=== PATIENT | female | born 1940 | race Caucasian/White ===

== ENCOUNTER → 2017-10-10 15:35 | Outpatient (CLI) | payer MEDICARE, SELFPAY ==
[2017-10-10 16:08] LABS: Hematocrit 26.7 % (36-46); Hemoglobin 8.4 g/dL (12.0-16.0)
== END ==
PROVIDERS: PCP Nurse Practitioner Family; Visit Provider Nurse Practitioner Family
DX: D64.9 Anemia, unspecified (principal); R53.83 Other fatigue
CPT/HCPCS: 36415; 85014; 85018

== ENCOUNTER → 2017-10-16 10:27 | Outpatient (CLI) | payer MEDICARE, SELFPAY ==
[2017-10-16 11:20] LABS: Hematocrit 34.1 % (36-46); Hemoglobin 11.2 g/dL (12.0-16.0)
== END ==
PROVIDERS: PCP Nurse Practitioner Family; Visit Provider Internal Medicine
DX: D64.9 Anemia, unspecified (principal); R53.83 Other fatigue
CPT/HCPCS: 36415; 85014; 85018

== ENCOUNTER → 2018-05-25 11:29 | Outpatient (CLI) | payer MEDICARE, SELFPAY ==
[2018-05-25 12:05] LABS: Add Manual Diff / Slide Review NO; Basophils Absolute Auto 100 /uL (0-100); Basophils Percent Auto 1.4 % (0-2); Eosinophils Absolute Auto 100 /uL (0-450); Eosinophils Percent Auto 2.2 % (2-4); Hematocrit 28.7 % (36-46); Hemoglobin 9.1 g/dL (12.0-16.0); Lymphocytes Absolute Auto 600 /uL (1100-4500); Lymphocytes Percent Auto 11.5 % (25-40); Mean Corpuscular HGB Conc 31.7 % (30-36); Mean Corpuscular Hemoglobin 25.6 PG (26-34); Mean Corpuscular Volume 80.7 fL (80-100); Monocytes Absolute Auto 400 /uL (0-900); Neutrophils Absolute Auto 4300 /uL (1500-7000); Neutrophils Percent Auto 76.9 % (50-75); Platelet Count 253 X10^3/uL (150-400); Red Blood Cell Count 3.56 X10^6/uL (4.0-5.2); Red Cell Distribution Width 15.6 % (11.6-14.8); White Blood Cell Count 5.6 X10^3/uL (4.5-11.0)
[2018-05-25 12:13] LABS: HEMOLYSIS < 15 (0-50); Iron 335 ug/dL (37-170)
[2018-05-25 12:23] LABS: Percent Iron Saturation 68 % (15-50); Total Iron Binding Capacity 494 ug/dL (265-497); Transferrin 432 mg/dL (206-381)
[2018-05-25 12:51] LABS: Ferritin 7.1 ng/mL (11.1-264)
== END ==
PROVIDERS: PCP Internal Medicine; Visit Provider Internal Medicine
DX: D64.9 Anemia, unspecified (principal)
CPT/HCPCS: 36415; 82728; 83540; 83550; 85025; 86850; 86900; 86901

== ENCOUNTER → 2018-06-08 09:36 | Outpatient (CLI) | payer MEDICARE, SELFPAY ==
[2018-06-08 11:05] LABS: Add Manual Diff / Slide Review NO; Basophils Absolute Auto 100 /uL (0-100); Basophils Percent Auto 1.5 % (0-2); Eosinophils Absolute Auto 200 /uL (0-450); Eosinophils Percent Auto 4.3 % (2-4); Hematocrit 32.6 % (36-46); Hemoglobin 10.2 g/dL (12.0-16.0); Lymphocytes Absolute Auto 800 /uL (1100-4500); Lymphocytes Percent Auto 19.2 % (25-40); Mean Corpuscular HGB Conc 31.4 % (30-36); Mean Corpuscular Hemoglobin 26.3 PG (26-34); Mean Corpuscular Volume 83.9 fL (80-100); Monocytes Absolute Auto 400 /uL (0-900); Monocytes Percent Auto 10.3 % (3-14); Neutrophils Absolute Auto 2700 /uL (1500-7000); Neutrophils Percent Auto 64.7 % (50-75); Platelet Count 272 X10^3/uL (150-400); Red Blood Cell Count 3.88 X10^6/uL (4.0-5.2); Red Cell Distribution Width 20.8 % (11.6-14.8); White Blood Cell Count 4.2 X10^3/uL (4.5-11.0)
[2018-06-08 12:10] LABS: Anisocytosis 1+
== END ==
PROVIDERS: PCP Internal Medicine; Visit Provider Internal Medicine
DX: D64.9 Anemia, unspecified (principal)
CPT/HCPCS: 36415; 85025

== ENCOUNTER → 2018-09-07 14:40 | Outpatient (CLI) | payer MEDICARE, SELFPAY ==
[2018-09-07 15:56] LABS: Add Manual Diff / Slide Review NO; Basophils Absolute Auto 0 /uL (0-100); Basophils Percent Auto 0.8 % (0-2); Eosinophils Absolute Auto 100 /uL (0-450); Eosinophils Percent Auto 2.1 % (2-4); Hematocrit 37.8 % (36-46); Hemoglobin 12.4 g/dL (12.0-16.0); Lymphocytes Absolute Auto 900 /uL (1100-4500); Lymphocytes Percent Auto 17.9 % (25-40); Mean Corpuscular HGB Conc 32.8 % (30-36); Mean Corpuscular Hemoglobin 28.7 PG (26-34); Mean Corpuscular Volume 87.5 fL (80-100); Monocytes Absolute Auto 500 /uL (0-900); Monocytes Percent Auto 9.4 % (3-14); Neutrophils Absolute Auto 3600 /uL (1500-7000); Neutrophils Percent Auto 69.8 % (50-75); Platelet Count 186 X10^3/uL (150-400); Red Blood Cell Count 4.32 X10^6/uL (4.0-5.2); Red Cell Distribution Width 15.4 % (11.6-14.8); White Blood Cell Count 5.1 X10^3/uL (4.5-11.0)
[2018-09-07 18:01] LABS: HEMOLYSIS < 15 (0-50); Iron 79 ug/dL (37-170)
[2018-09-07 18:11] LABS: Percent Iron Saturation 21 % (15-50); Total Iron Binding Capacity 371 ug/dL (265-497); Transferrin 301 mg/dL (206-381)
[2018-09-07 18:36] LABS: Ferritin 21.2 ng/mL (11.1-264)
== END ==
PROVIDERS: PCP Internal Medicine; Visit Provider Internal Medicine
DX: D64.9 Anemia, unspecified (principal); R53.83 Other fatigue
CPT/HCPCS: 36415; 82728; 83540; 83550; 85025

== ENCOUNTER → 2018-10-06 15:21 | Outpatient (CLI) | payer MEDICARE, SELFPAY ==
--- NOTE | 2018-10-06 15:24 | DI.MG.S_ITS ---
BILATERAL DIGITAL SCREENING MAMMOGRAM 3D/2D WITH CAD: 10/06/2018 CLINICAL: Routine screening. Family history of breast cancer. Comparison is made to exams dated: 09/11/2017 mammogram, 09/04/2016 mammogram, 08/10/2015 mammogram, and 08/02/2015 mammogram - [facility]. There are scattered fibroglandular elements in both breasts. Current study was also evaluated with a Computer Aided Detection (CAD) system. There are benign calcifications in both breasts. No significant masses, calcifications, or other findings are seen in either breast. There has been no significant interval change. IMPRESSION: There is no mammographic evidence of malignancy. A 1 year screening mammogram is recommended. This exam was interpreted at Station ID: [id number]. NOTE: For mammograms, a report in lay terms will be sent to the patient. Approximately 15% of breast malignancies will not be visualized mammographically. In the management of a palpable breast mass, a negative mammogram must not discourage biopsy of a clinically suspicious lesion. Electronically Signed By: Osmani ferrara/anna:10/07/2018 17:31:48 letter sent: Normal Exam ACR BI-RADS Category 2: Benign Finding(s) 3342F
== END ==
PROVIDERS: PCP Internal Medicine; Visit Provider Internal Medicine
DX: Z12.31 Encounter for screening mammogram for malignant neoplasm of breast (principal); Z80.3 Family history of malignant neoplasm of breast
CPT/HCPCS: 77063; 77067

== ENCOUNTER → 2019-02-23 10:36 | Outpatient (CLI) | payer MEDICARE, SELFPAY ==
[2019-02-23 11:07] LABS: Add Manual Diff / Slide Review NO; Basophils Absolute Auto 100 /uL (0-100); Basophils Percent Auto 1.1 % (0-2); Eosinophils Absolute Auto 100 /uL (0-450); Eosinophils Percent Auto 3.3 % (2-4); Hematocrit 26.4 % (36-46); Hemoglobin 8.6 g/dL (12.0-16.0); Lymphocytes Absolute Auto 700 /uL (1100-4500); Lymphocytes Percent Auto 16.2 % (25-40); Mean Corpuscular HGB Conc 32.6 % (30-36); Mean Corpuscular Hemoglobin 28.4 PG (26-34); Mean Corpuscular Volume 87.2 fL (80-100); Monocytes Absolute Auto 500 /uL (0-900); Neutrophils Absolute Auto 3100 /uL (1500-7000); Neutrophils Percent Auto 68.4 % (50-75); Platelet Count 188 X10^3/uL (150-400); Red Blood Cell Count 3.03 X10^6/uL (4.0-5.2); Red Cell Distribution Width 16.1 % (11.6-14.8); White Blood Cell Count 4.5 X10^3/uL (4.5-11.0)
[2019-02-23 11:34] LABS: HEMOLYSIS < 15 (0-50); Iron 21 ug/dL (37-170)
[2019-02-23 11:45] LABS: Percent Iron Saturation 5 % (15-50); Total Iron Binding Capacity 410 ug/dL (265-497); Transferrin 334 mg/dL (206-381)
[2019-02-23 11:56] LABS: Ferritin 7.5 ng/mL (11.1-264)
== END ==
PROVIDERS: PCP Internal Medicine; Visit Provider Internal Medicine
DX: D64.9 Anemia, unspecified (principal)
CPT/HCPCS: 36415; 82728; 83540; 83550; 85025

== ENCOUNTER → 2019-02-23 16:16 | Outpatient (CLI) | payer MEDICARE, SELFPAY ==
[2019-02-23 16:51] LABS: Add Manual Diff / Slide Review NO; Basophils Absolute Auto 100 /uL (0-100); Basophils Percent Auto 1.1 % (0-2); Eosinophils Absolute Auto 200 /uL (0-450); Eosinophils Percent Auto 2.6 % (2-4); Hematocrit 27.5 % (36-46); Hemoglobin 9.2 g/dL (12.0-16.0); Lymphocytes Absolute Auto 800 /uL (1100-4500); Lymphocytes Percent Auto 13.4 % (25-40); Mean Corpuscular HGB Conc 33.3 % (30-36); Mean Corpuscular Hemoglobin 29.1 PG (26-34); Mean Corpuscular Volume 87.3 fL (80-100); Monocytes Absolute Auto 500 /uL (0-900); Monocytes Percent Auto 9.2 % (3-14); Neutrophils Absolute Auto 4200 /uL (1500-7000); Neutrophils Percent Auto 73.7 % (50-75); Platelet Count 200 X10^3/uL (150-400); Red Blood Cell Count 3.15 X10^6/uL (4.0-5.2); Red Cell Distribution Width 15.9 % (11.6-14.8); White Blood Cell Count 5.7 X10^3/uL (4.5-11.0)
[2019-02-23 17:04] LABS: Iron 17 ug/dL (37-170)
[2019-02-23 17:13] LABS: Percent Iron Saturation 4 % (15-50); Total Iron Binding Capacity 426 ug/dL (265-497)
== END ==
PROVIDERS: PCP Internal Medicine; Visit Provider Nurse Practitioner
DX: D64.9 Anemia, unspecified (principal); R53.83 Other fatigue
CPT/HCPCS: 36415; 82728; 83540; 83550; 85025

== ENCOUNTER → 2019-02-25 12:22 | Outpatient (CLI) | payer MEDICARE, SELFPAY ==
[2019-02-25 13:05] LABS: Hematocrit 34.7 % (36-46); Hemoglobin 11.5 g/dL (12.0-16.0)
== END ==
PROVIDERS: PCP Internal Medicine; Visit Provider Internal Medicine
DX: D64.9 Anemia, unspecified (principal)
CPT/HCPCS: 36415; 85014; 85018

== ENCOUNTER → 2019-05-12 10:40 | Outpatient (CLI) | payer MEDICARE, SELFPAY ==
[2019-05-12 11:05] LABS: Add Manual Diff / Slide Review NO; Basophils Absolute Auto 100 /uL (0-100); Basophils Percent Auto 1.2 % (0-2); Eosinophils Absolute Auto 100 /uL (0-450); Eosinophils Percent Auto 2.7 % (2-4); Hemoglobin 10.5 g/dL (12.0-16.0); Lymphocytes Absolute Auto 700 /uL (1100-4500); Lymphocytes Percent Auto 13.3 % (25-40); Mean Corpuscular HGB Conc 32.8 % (30-36); Mean Corpuscular Hemoglobin 27.6 PG (26-34); Mean Corpuscular Volume 84.1 fL (80-100); Monocytes Absolute Auto 400 /uL (0-900); Monocytes Percent Auto 7.4 % (3-14); Neutrophils Absolute Auto 4000 /uL (1500-7000); Neutrophils Percent Auto 75.4 % (50-75); Platelet Count 293 X10^3/uL (150-400); Red Cell Distribution Width 18.7 % (11.6-14.8); White Blood Cell Count 5.3 X10^3/uL (4.5-11.0)
[2019-05-12 11:23] LABS: HEMOLYSIS < 15 (0-50); Iron 55 ug/dL (37-170)
[2019-05-12 11:34] LABS: Percent Iron Saturation 14 % (15-50); Total Iron Binding Capacity 391 ug/dL (265-497); Transferrin 353 mg/dL (206-381)
[2019-05-12 14:25] LABS: Ferritin 37.6 ng/mL (11.1-264)
== END ==
PROVIDERS: PCP Internal Medicine; Referring Provider Internal Medicine; Visit Provider Internal Medicine
DX: D64.9 Anemia, unspecified (principal)
CPT/HCPCS: 36415; 82728; 83540; 83550; 85025; 86850; 86900; 86901

== ENCOUNTER 2019-05-19 12:32 | Day surgery (SDC) | payer MEDICARE, SELFPAY ==
--- NOTE | 2019-05-19 | PATH_ITS ---
[facility] Accession Number: [id number] . 01 Material submitted: . body - DUODENAL . 01 Clinical history: . 05/20/2019 MESSAGE LEFT WITH VIVEK (GARRICK) TO VERIFY BIOPSY SITE 05/21/2019 BIOPSY SITE VERIFIED BY VIVEK (GARRICK) - DAGO . 01 Diagnosis: Duodenum, Biopsy: Duodenal mucosa with focal mild active inflammation. No evidence of celiac disease. See comment. MRV 05/21/2019 1239 Local . 01 Comment: The features raise a differential including peptic duodenitis or onset-induced injury among other possibilities. . 01 Electronically signed: . Demetra Davies MD, Pathologist NPI- [id number] . 01 Gross description: . NO SITE DESIGNATED: Received in formalin are 4 fragment(s) of alexander, soft tissue measuring 0.1 x 0.1 x 0.1 cm to 0.2 x 0.2 x 0.1 cm submitted entirely in 1 cassette(s) [place] [place] 2132 Local . 01 Pathologist provided ICD-10: K29.80 . 01 CPT . 930312 Performed at: [address] [facility] [address], [place], [place] [id number] MD Jorge Zhong MD Phone: [phone]
--- NOTE | 2019-05-19 12:11 | PM.HP.1 ---
History of Present Illness History of Present Illness Date Patient Seen: 05/19/19 Chief complaint: [id number] Narrative: Patient is an 79-year-old female who presented for repeat upper endoscopy. Patient has a history of anemia that has progressively worsened over the last month. She does have a history of a large hiatal hernia with Jhonny erosions that were found on EGD in 2018. This is a chronic condition and has required transfusions. Patient History Family & Social History Tobacco & Substance use: Smoking Status Never smoker alcohol intake frequency 0-2 drinks per day Substance Use Type does not use Meds Home Medications and Allergies Home Medications Medication Instructions Recorded Confirmed Type sertraline 50 mg PO QDAY #0 07/24/12 05/19/19 History pantoprazole 40 mg PO DAILY 05/19/19 05/19/19 History Allergies Allergy/AdvReac Type Severity Reaction Status Date / Time ciprofloxacin [From Cipro] Allergy Mild Verified 05/19/19 13:13 peanut Allergy Unknown Verified 05/19/19 13:13 LACTOSE INTOLERANCE Allergy Mild CHEESE Uncoded 05/19/19 13:13 OK-NO MILK OR OTHERWISE MILK PRODUCTS & NO SOY MILK Review of Systems Review of Systems ROS: Yes All systems reviewed with the patient and are negative except as otherwise documented Exam Const General: cooperative, healthy appearing, comfortable, well developed, well groomed and No acute distress HENMT Head: normocephalic and atraumatic Nose: external nose normal Resp Effort & Inspection: normal respiratory effort and able to speak in complete sentences Auscultation: clear to auscultation bilaterally Cardio Rate: regular rate Rhythm: regular rhythm Heart Sounds: S1 normal and S2 normal GI Palpation: soft, No guarding and No rigid Auscultation: normal bowel sounds Extrem Right lower extremity: no edema Left lower extremity: no edema Assessment & Plan Assessment & Plan narrative: 1. Acute on chronic anemia 2. History of hiatal hernia with Jhonny erosions EGD today, further recommendations to follow
[2019-05-19] MEDS: SODIUM CHLORIDE 0.9% 1,000 ML 70 ML IV (13:17)
[2019-05-19 13:18] VITALS: BP 142/68; PULSE 74; RESP 16; TEMP 35.8; O2SAT 100; BMI 25.0
[2019-05-19] MEDS: MIDAZOLAM 5 MG/ML VIAL IM (13:55)
[2019-05-19] MEDS: LIDOCAINE 4% SOLN 50 ML 20 ML TOP (13:56)
[2019-05-19] MEDS: fentaNYL 250 MCG/5 ML INJ IV (13:56)
[2019-05-19 14:14] VITALS: BP 144/65; PULSE 71; RESP 14; TEMP 36.2; O2SAT 91
[2019-05-19 14:19] VITALS: BP 132/65; PULSE 69; RESP 14; O2SAT 91
--- NOTE | 2019-05-19 14:20 | PM.OP.ENDO ---
Operative Date/Time/Diagnoses Date of procedure: 05/19/19 Time of procedure: 13:57 Procedure Notes Procedure in detail: Surgeon: Lindsay Nath DO Procedure: Esophagogastroduodenoscopy with biopsy Preoperative diagnosis: 1. Acute on chronic anemia 2. History of hiatal hernia with Jhonny erosions Postoperative diagnosis: 1. Large hiatal hernia with Jhonny erosions 2. Tortuous lower esophagus 3. Normal appearing gastric mucosa 4. Normal appearing small, rule out celiac sprue Medications: Conscious sedation using 4% lidocaine gargle, 4 mg IV of Midazolam and 75 mcg IV of Fentanyl Preanesthesia Assessment An H and P was performed/updated and the Px?s ASA class is 2. The procedure was discussed in detail with the patient. The potential risks and complications including infection, bleeding, missed lesions, perforation, need for surgery in case of perforation, prolonged hospital stay, and were explained. A brief question and answer period was allotted and once all questions were answered, informed consent was obtained. The patient was brought back to the procedure room and placed on standard monitoring. The patient?s vital signs were monitored continuously throughout the entire procedure. Prior to starting, a timeout was performed to confirm the patient?s identity, allergies, medications, and procedure. Procedure in detail The patient was placed in left lateral decubitus position and a bite block was inserted. The tip of the upper endoscope was placed into the mouth and advanced without difficulty under direct visualization into the esophagus. Esophagus: -tortuous lower 3rd of the esophagus Stomach: -large hiatal hernia with small Jhonny erosions -normal appearing gastric in the antrum and body Duodenum: -normal-appearing duodenum, biopsies obtained to rule out celiac sprue due to anemia The patient tolerated the procedure well and will be brought back to the recovery area to be discharged once criteria are met. The total physician intraservice time was 10min. Complications There were no complications and estimated blood loss was minimal. Recommendations: Resume previous diet Continue outPx medications Follow up pathology results Follow-up in the office a persistent anemia If worsening anemia consider Carafate 1 g to 4 times daily for Jhonny erosions An emergency contact number was given to the patient for any complications related to the procedure Sedation minutes: 10
[2019-05-19 14:24] VITALS: BP 134/68; PULSE 68; RESP 14; O2SAT 92
[2019-05-19 14:28] VITALS: BP 137/56; PULSE 67; RESP 16; TEMP 36.7; O2SAT 93
== END 2019-05-19 15:15 | disposition home or self-care (01) ==
PROVIDERS: PCP Internal Medicine; Referring Provider Internal Medicine; Visit Provider Student in an Organized Health Care Education/Training Program
PROC: 0DJ08ZZ Inspection of Upper Intestinal Tract, Via Natural or Artificial Opening Endoscopic (ICD-10-PCS; CPT 43235; principal; 2019-05-19 14:00)
DX: D64.9 Anemia, unspecified (principal); K44.9 Diaphragmatic hernia without obstruction or gangrene; K29.80 Duodenitis without bleeding; K22.10 Ulcer of esophagus without bleeding
CPT/HCPCS: 43239; J2250; J3010

== ENCOUNTER → 2019-06-11 15:07 | Outpatient (CLI) | payer MEDICARE, SELFPAY ==
[2019-06-11 15:51] LABS: Add Manual Diff / Slide Review NO; Basophils Absolute Auto 100 /uL (0-100); Basophils Percent Auto 1.1 % (0-2); Eosinophils Absolute Auto 200 /uL (0-450); Eosinophils Percent Auto 3.8 % (2-4); Hematocrit 36.4 % (36-46); Lymphocytes Absolute Auto 900 /uL (1100-4500); Lymphocytes Percent Auto 17.2 % (25-40); Mean Corpuscular HGB Conc 33.1 % (30-36); Mean Corpuscular Hemoglobin 29.1 PG (26-34); Monocytes Absolute Auto 400 /uL (0-900); Monocytes Percent Auto 7.4 % (3-14); Neutrophils Absolute Auto 3900 /uL (1500-7000); Neutrophils Percent Auto 70.5 % (50-75); Platelet Count 234 X10^3/uL (150-400); Red Blood Cell Count 4.14 X10^6/uL (4.0-5.2); Red Cell Distribution Width 18.5 % (11.6-14.8); White Blood Cell Count 5.5 X10^3/uL (4.5-11.0)
== END ==
PROVIDERS: PCP Internal Medicine; Referring Provider Internal Medicine; Visit Provider Internal Medicine
DX: D64.9 Anemia, unspecified (principal)
CPT/HCPCS: 36415; 85025

== ENCOUNTER → 2020-05-01 19:47 | Outpatient (ROUT) | payer MEDICARE, SELFPAY ==
[2020-05-01 20:18] LABS: Add Manual Diff / Slide Review NO; Basophils Absolute Auto 0 /uL (0-100); Basophils Percent Auto 0.6 % (0-2); Eosinophils Absolute Auto 100 /uL (0-450); Eosinophils Percent Auto 2.5 % (2-4); Hematocrit 38.1 % (36-46); Hemoglobin 12.4 g/dL (12.0-16.0); Lymphocytes Absolute Auto 900 /uL (1100-4500); Lymphocytes Percent Auto 14.8 % (25-40); Mean Corpuscular HGB Conc 32.6 % (30-36); Mean Corpuscular Hemoglobin 29.6 PG (26-34); Mean Corpuscular Volume 90.7 fL (80-100); Monocytes Absolute Auto 500 /uL (0-900); Monocytes Percent Auto 7.4 % (3-14); Neutrophils Absolute Auto 4500 /uL (1500-7000); Neutrophils Percent Auto 74.7 % (50-75); Platelet Count 198 X10^3/uL (150-400); Red Cell Distribution Width 13.7 % (11.6-14.8)
[2020-05-01 20:22] LABS: HEMOLYSIS < 15 (0-50); Iron 70 ug/dL (37-170)
[2020-05-01 20:23] LABS: Alanine Aminotransferase 17 IU/L (<35); Albumin 4.3 g/dL (3.5-5.0); Albumin Globulin Ratio 1.6 (1.0-2.8); Alkaline Phosphatase 111 U/L (38-126); Aspartate Aminotransferase 33 IU/L (14-36); BUN Creatinine Ratio 18.2 (6-22); Bilirubin Total 0.2 mg/dL (0.2-1.3); Blood Urea Nitrogen 16 mg/dL (7-17); Calcium 9.5 mg/dL (8.4-10.2); Carbon Dioxide 26 mmol/L (22-32); Chloride 101 mmol/L (98-107); Estimated Glomerular Filt Rate > 60.0 mL/min (>60); Globulin 2.7 g/dL (1.7-4.1); Glucose 91 mg/dL (80-110); HEMOLYSIS < 15 (0-50); Potassium 4.6 mmol/L (3.4-5.1); Sodium 133 mmol/L (137-145)
[2020-05-01 20:35] LABS: Percent Iron Saturation 22 % (15-50); Total Iron Binding Capacity 312 ug/dL (265-497); Transferrin 246 mg/dL (206-381)
[2020-05-01 20:53] LABS: TSH w/ Reflex to FT4 0.84 uIU/mL (0.47-4.68)
[2020-05-01 21:00] LABS: Ferritin 44 ng/mL (11-264)
[2020-05-01 21:29] LABS: Folate > 20.0 ng/mL (2.76-20.0)
== END ==
PROVIDERS: PCP Internal Medicine; Visit Provider Student in an Organized Health Care Education/Training Program
DX: R53.83 Other fatigue (principal); E78.5 Hyperlipidemia, unspecified; D64.9 Anemia, unspecified
CPT/HCPCS: 80053; 82728; 82746; 83540; 83550; 84443; 85025

== ENCOUNTER → 2020-08-22 15:23 | Outpatient (CLI) | payer MEDICARE, SELFPAY ==
--- NOTE | 2020-08-22 | DI.MG.S_ITS ---
BILATERAL DIGITAL SCREENING MAMMOGRAM 3D/2D WITH CAD: 08/22/2020 CLINICAL: Routine screening. Family history of breast cancer. Comparison is made to exam dated: 10/06/2018 [facility]. There are scattered fibroglandular elements in both breasts. Current study was also evaluated with a Computer Aided Detection (CAD) system. There are benign calcifications in both breasts. No significant masses, calcifications, or other findings are seen in either breast. There has been no significant interval change. IMPRESSION: BENIGN There is no mammographic evidence of malignancy. A 1 year screening mammogram is recommended. This exam was interpreted at Station ID: [id number]. NOTE: For mammograms, a report in lay terms will be sent to the patient. Approximately 15% of breast malignancies will not be visualized mammographically. In the management of a palpable breast mass, a negative mammogram must not discourage biopsy of a clinically suspicious lesion. Electronically Signed By: Danielle rodrigues/anna:08/22/2020 16:01:39 letter sent: Normal Exam ACR BI-RADS Category 2: Benign Finding(s) 3342F
== END ==
PROVIDERS: PCP Student in an Organized Health Care Education/Training Program; Referring Provider Student in an Organized Health Care Education/Training Program; Visit Provider Student in an Organized Health Care Education/Training Program
DX: Z80.3 Family history of malignant neoplasm of breast (principal); Z12.31 Encounter for screening mammogram for malignant neoplasm of breast; M81.0 Age-related osteoporosis without current pathological fracture; Z78.0 Asymptomatic menopausal state; Z90.722 Acquired absence of ovaries, bilateral; Z87.891 Personal history of nicotine dependence; Z82.62 Family history of osteoporosis
CPT/HCPCS: 77063; 77067; 77080

== ENCOUNTER 2021-01-26 14:50 | Inpatient (IN) | payer MEDICARE, SELFPAY ==
[2021-01-26] VITALS (14 sets, daily range): BP systolic 117–169; BP diastolic 41–96; PULSE 92–105; RESP 16–25; TEMP 36.1–36.4; O2SAT 96–100; BMI 25.4
--- NOTE | 2021-01-26 15:48 | ED.GIBLEED ---
HPI - GI Bleed General Chief complaint: GI Bleed Stated complaint: black diarrhea Time Seen by Provider: 01/26/21 15:37 Source: patient and family Mode of arrival: Wheelchair Limitations: no limitations History of Present Illness HPI Narrative: Patient is an 81-year-old female who has history of anemia presents with black tarry stools this started 2 evenings ago. She has had a couple of episodes. She has had some nausea and vomiting as well. No bright red blood in either stool or vomit. She feels generally weak a little dizzy and lightheaded it. She is not taking any anti-platelet or anticoagulation medications. She denies any abdominal pain no chest pain no shortness of breath. Related Data Home Medications Medication Instructions Recorded Confirmed sertraline 50 mg tablet 100 mg PO QDAY #0 07/24/12 01/26/21 pantoprazole 40 mg tablet,delayed 40 mg PO DAILY 05/19/19 01/26/21 release Allergies Allergy/AdvReac Type Severity Reaction Status Date / Time ciprofloxacin [From Cipro] Allergy Mild Verified 05/19/19 13:13 peanut Allergy Unknown Verified 05/19/19 13:13 LACTOSE INTOLERANCE Allergy Mild CHEESE Uncoded 05/19/19 13:13 OK-NO MILK OR OTHERWISE MILK PRODUCTS & NO SOY MILK Review of Systems Review of Systems Narrative: GENERAL: Generally weak denies fever or chills or body swelling HEENT: Denies sinus pain, ear pain, sore throat, difficulty swallowing, neck pain RESPIRATORY: Denies dyspnea, cough, wheezing, hemoptysis, sputum. CARDIOVASCULAR: Denies chest pain, palpitations, orthopnea, edema GASTROINTESTINAL:+ black tarry stool see HPI : Denies dysuria, frequency, incontinence, hematuria, urinary retention, flank pain. MUSCULOSKELETAL: Denies weakness, joint pain, or bony pain SKIN: No rash, no erythema, no pruritus NEUROLOGIC: Denies weakness, dizziness, headache, numbness, change in speech, confusion PSYCHIATRIC: No concerning psychosocial issues. 12 point review of systems is negative except for those stated above and HPI Patient History Social History household members: spouse Smoking Status: Never smoker Smoking Status: Never smoker alcohol intake frequency: 3 or more drinks per day Alcohol type: wine Substance Use Type: does not use Exam Initial Vital Signs Initial Vital Signs: Vital Signs Temperature 97.5 F L 10/22/21 15:03 Pulse Rate 105 H 01/26/21 15:03 Respiratory Rate 20 01/26/21 15:03 Blood Pressure 126/59 L 01/26/21 15:03 Pulse Oximetry 96 01/26/21 15:03 GENERAL: Alert well-appearing 81-year-old female and in no acute distress. HEENT: Head atraumatic,EOMI, pupils reactive, face symmetric, moist mucous membranes CARDIOVASCULAR: Regular rate and rhythm without murmurs, rubs or gallops. RESPIRATORY: Breath sounds equal bilaterally, no wheezes rales or rhonchi. ABDOMEN: Soft, nontender. Normoactive bowel sounds all 4 quadrants. No guarding or rebound. RECTAL: Hemoccult-positive, no hemorrhoids, nontender gross black tarry stool EXTREMITIES: Normal range of motion, no clubbing or edema. Neurovascularly intact NEUROLOGICAL: Alert and oriented x4.Normal gait and speech. SKIN: Warm, dry, no laceration, no petechiae, no rashes or lesions. Course Orders Ordered: ED Orders 01/26/21 15:18 EKG-12 Lead Stat 01/26/21 16:25 Complete Blood Count AUTO DIFF Stat Comprehensive Metabolic Panel Stat Lactate (Lactic Acid) Stat Partial Thromboplastin Time Stat Prothrombin Time INR Stat Type and Screen Stat 01/26/21 16:40 Urine Culture Stat Urine Microscopic Stat 01/26/21 17:16 COVID19 - ADMIT ([employer] swab/PCR) Stat Discontinued Medications Pantoprazole Sodium (Pantoprazole 40 Mg Vial) 40 mg IV NOW ONE Stop: 01/26/21 16:29 Last Admin: 01/26/21 16:51 Dose: 40 mg Documented by: MAE Vital Signs Vital signs: Vital Signs - 8 hr 01/26/21 15:03 01/26/21 16:23 01/26/21 16:30 Temperature 97.5 F L Pulse Rate 105 H 92 H 96 H Respiratory Rate 20 18 18 Blood Pressure 126/59 L Pulse Oximetry 96 99 100 01/26/21 16:31 01/26/21 16:48 01/26/21 17:00 Temperature Pulse Rate 100 H 104 H 100 H Respiratory Rate 19 25 H 22 Blood Pressure 169/64 H 157/96 H 136/60 Pulse Oximetry 100 100 98 01/26/21 17:31 01/26/21 17:32 01/26/21 17:39 Temperature Pulse Rate 95 H Respiratory Rate 19 Blood Pressure 144/94 H Pulse Oximetry 100 100 98 MDM - GI Bleed Lab Data Result diagrams: 01/26/21 16:25 01/26/21 16:25 Labs: Lab Results 01/26/21 01/26/21 01/26/21 Range/Units 16:25 16:25 16:25 WBC 7.9 (4.5-11.0) X10^3/uL RBC 3.00 L (4.0-5.2) X10^6/uL Hgb 9.1 L (12.0-16.0) g/dL Hct 27.2 L (36-46) % MCV 90.6 (80-100) fL MCH 30.3 (26-34) PG MCHC 33.5 (30-36) % RDW 14.4 (11.6-14.8) % Plt Count 180 (150-400) X10^3/uL Neut % (Auto) 86.1 H (50-75) % Lymph % (Auto) 7.1 L (25-40) % [place] % (Auto) 5.9 (3-14) % Eos % (Auto) 0.2 L (2-4) % Baso % (Auto) 0.7 (0-2) % Neut # (Auto) 6800 (1239-9675) /uL Lymph # (Auto) 600 L (4522-8367) /uL [place] # (Auto) 500 (0-900) /uL Eos # (Auto) 0 (0-450) /uL Baso # (Auto) 100 (0-100) /uL PT (10.1-12.7) SECONDS INR (0.9-1.3) APTT (26.4-36.2) SECONDS Sodium 134 L (137-145) mmol/L Potassium 4.6 (3.4-5.1) mmol/L Chloride 100 (98-107) mmol/L Carbon Dioxide 24 (22-32) mmol/L BUN 58 H (7-17) mg/dL Creatinine 1.05 H (0.52-1.04) mg/dL Estimated GFR 50.2 L (>60) mL/min BUN/Creatinine Ratio 55.2 H (6-22) Glucose 112 H (80-110) mg/dL Lactate (0.7-2.1) mmol/L Calcium 9.2 (8.4-10.2) mg/dL Total Bilirubin 0.2 (0.2-1.3) mg/dL AST 50 H (14-36) IU/L ALT 39 H (<35) IU/L Alkaline Phosphatase 78 (38-126) U/L Total Protein 6.4 (6.3-8.2) g/dL Albumin 3.8 (3.5-5.0) g/dL Globulin 2.6 (1.7-4.1) g/dL Albumin/Globulin Ratio 1.5 (1.0-2.8) Urine RBC (0-5/HPF) Urine WBC (0-5/HPF) Urine Bacteria (None) Ur Culture Indicated? SARS-CoV-2 (PCR) (Negative) Blood Type O Positive Antibody Screen Negative 01/26/21 01/26/21 01/26/21 Range/Units 16:25 16:25 16:40 WBC (4.5-11.0) X10^3/uL RBC (4.0-5.2) X10^6/uL Hgb (12.0-16.0) g/dL Hct (36-46) % MCV (80-100) fL MCH (26-34) PG MCHC (30-36) % RDW (11.6-14.8) % Plt Count (150-400) X10^3/uL Neut % (Auto) (50-75) % Lymph % (Auto) (25-40) % [place] % (Auto) (3-14) % Eos % (Auto) (2-4) % Baso % (Auto) (0-2) % Neut # (Auto) (4684-3535) /uL Lymph # (Auto) (9094-4489) /uL [place] # (Auto) (0-900) /uL Eos # (Auto) (0-450) /uL Baso # (Auto) (0-100) /uL PT 11.4 (10.1-12.7) SECONDS INR 1.0 (0.9-1.3) APTT 25 L (26.4-36.2) SECONDS Sodium (137-145) mmol/L Potassium (3.4-5.1) mmol/L Chloride (98-107) mmol/L Carbon Dioxide (22-32) mmol/L BUN (7-17) mg/dL Creatinine (0.52-1.04) mg/dL Estimated GFR (>60) mL/min BUN/Creatinine Ratio (6-22) Glucose (80-110) mg/dL Lactate 0.7 (0.7-2.1) mmol/L Calcium (8.4-10.2) mg/dL Total Bilirubin (0.2-1.3) mg/dL AST (14-36) IU/L ALT (<35) IU/L Alkaline Phosphatase (38-126) U/L Total Protein (6.3-8.2) g/dL Albumin (3.5-5.0) g/dL Globulin (1.7-4.1) g/dL Albumin/Globulin Ratio (1.0-2.8) Urine RBC 0-1/hpf (0-5/HPF) Urine WBC 30-100/hpf H (0-5/HPF) Urine Bacteria Many (>30) H (None) Ur Culture Indicated? Specimen cultured SARS-CoV-2 (PCR) (Negative) Blood Type Antibody Screen 01/26/21 Range/Units 17:16 WBC (4.5-11.0) X10^3/uL RBC (4.0-5.2) X10^6/uL Hgb (12.0-16.0) g/dL Hct (36-46) % MCV (80-100) fL MCH (26-34) PG MCHC (30-36) % RDW (11.6-14.8) % Plt Count (150-400) X10^3/uL Neut % (Auto) (50-75) % Lymph % (Auto) (25-40) % [place] % (Auto) (3-14) % Eos % (Auto) (2-4) % Baso % (Auto) (0-2) % Neut # (Auto) (4735-3004) /uL Lymph # (Auto) (4825-8042) /uL [place] # (Auto) (0-900) /uL Eos # (Auto) (0-450) /uL Baso # (Auto) (0-100) /uL PT (10.1-12.7) SECONDS INR (0.9-1.3) APTT (26.4-36.2) SECONDS Sodium (137-145) mmol/L Potassium (3.4-5.1) mmol/L Chloride (98-107) mmol/L Carbon Dioxide (22-32) mmol/L BUN (7-17) mg/dL Creatinine (0.52-1.04) mg/dL Estimated GFR (>60) mL/min BUN/Creatinine Ratio (6-22) Glucose (80-110) mg/dL Lactate (0.7-2.1) mmol/L Calcium (8.4-10.2) mg/dL Total Bilirubin (0.2-1.3) mg/dL AST (14-36) IU/L ALT (<35) IU/L Alkaline Phosphatase (38-126) U/L Total Protein (6.3-8.2) g/dL Albumin (3.5-5.0) g/dL Globulin (1.7-4.1) g/dL Albumin/Globulin Ratio (1.0-2.8) Urine RBC (0-5/HPF) Urine WBC (0-5/HPF) Urine Bacteria (None) Ur Culture Indicated? SARS-CoV-2 (PCR) Negative (Negative) Blood Type Antibody Screen Point of Care Testing Stool Occult Blood Positive ECG Data Interpretation: A sinus rhythm rate 93 ND interval 144 QRS [address] changes no T-wave inversion MDM Narrative Medical decision making narrative: Patient 81-year-old female who is guaiac positive with black tarry stool. Hemoglobin of 9.1 hematocrit of 27, previous blood work from in April 2020 shows a hemoglobin of 12.4 hematocrit 38.1. BUN creatinine ratio is also significantly elevated suggestive of upper GI bleed. She is given 1 dose of Protonix. She is otherwise hemodynamically stable with normal blood pressure and heart rate. Dr. Damico, surgery has been updated on patient's symptoms test results and happy to consult Dr. Almeida, hospitalist updated on test results surgery recommendation and happy to admit Discharge Plan Departure Patient Disposition: Admitted as Observation Clinical Impression: Acute GI bleeding Admit Date/Time: 01/26/21 17:49 Admit Provider: Rasta Almeida
--- NOTE | 2021-01-26 16:29 | PC.NURSE ---
assist at bedside with Dr. Iraheta heme positive.
[2021-01-26 16:36] LABS: Add Manual Diff / Slide Review NO; Basophils Absolute Auto 100 /uL (0-100); Basophils Percent Auto 0.7 % (0-2); Eosinophils Absolute Auto 0 /uL (0-450); Eosinophils Percent Auto 0.2 % (2-4); Hematocrit 27.2 % (36-46); Hemoglobin 9.1 g/dL (12.0-16.0); Lymphocytes Absolute Auto 600 /uL (1100-4500); Lymphocytes Percent Auto 7.1 % (25-40); Mean Corpuscular HGB Conc 33.5 % (30-36); Mean Corpuscular Hemoglobin 30.3 PG (26-34); Mean Corpuscular Volume 90.6 fL (80-100); Monocytes Absolute Auto 500 /uL (0-900); Monocytes Percent Auto 5.9 % (3-14); Neutrophils Absolute Auto 6800 /uL (1500-7000); Neutrophils Percent Auto 86.1 % (50-75); Platelet Count 180 X10^3/uL (150-400); Red Cell Distribution Width 14.4 % (11.6-14.8); White Blood Cell Count 7.9 X10^3/uL (4.5-11.0)
[2021-01-26 16:41] LABS: Prothrombin Time 11.4 SECONDS (10.1-12.7)
[2021-01-26 16:44] LABS: PTT Partial Thromboplastin Tim 25 SECONDS (26.4-36.2)
[2021-01-26] MEDS: PANTOPRAZOLE 40 MG VIAL IV ×2 (16:51→20:47)
[2021-01-26 16:53] LABS: Lactate (Lactic Acid) 0.7 mmol/L (0.7-2.1)
[2021-01-26 16:54] LABS: Alanine Aminotransferase 39 IU/L (<35); Albumin 3.8 g/dL (3.5-5.0); Albumin Globulin Ratio 1.5 (1.0-2.8); Alkaline Phosphatase 78 U/L (38-126); Aspartate Aminotransferase 50 IU/L (14-36); BUN Creatinine Ratio 55.2 (6-22); Bilirubin Total 0.2 mg/dL (0.2-1.3); Blood Urea Nitrogen 58 mg/dL (7-17); Calcium 9.2 mg/dL (8.4-10.2); Carbon Dioxide 24 mmol/L (22-32); Chloride 100 mmol/L (98-107); Estimated Glomerular Filt Rate 50.2 mL/min (>60); Globulin 2.6 g/dL (1.7-4.1); Glucose 112 mg/dL (80-110); HEMOLYSIS < 15 (0-50); Potassium 4.6 mmol/L (3.4-5.1); Sodium 134 mmol/L (137-145); Total Protein 6.4 g/dL (6.3-8.2)
[2021-01-26 17:47] LABS: Bacteria Urine Many (>30); Culture Indicated Urine Specimen Cultured; RBC Urine 0-1/HPF (0-5/HPF); WBC Urine 30-100/HPF (0-5/HPF)
--- NOTE | 2021-01-26 18:13 | PC.NURSE ---
report to chasidy rn acu. waiting on covid results lab states about 6 more mins for results
[2021-01-26 18:16] LABS: COVID19 - ADMIT (NP swab/PCR) Negative (Negative)
--- NOTE | 2021-01-26 20:13 | PC.ADMIT ---
Addendum entered by Charlotte Swenson R.N. 01/26/21 23:19: Denies nausea this shift. Had one black, formed stool. Denies pain/discomfort. Sleeping at this time. Original Note: [email or web address] [facility] Admission Note: Patient arrived to floor from ER at 1830. Alert and oriented x 4, able to make needs known. Oriented to room and call light. Brakes on bed are locked. The patient,Joan Green,81 y/o, was given written information regarding hospital policies, unit procedures and contact persons. Patient's smoking status: Never smoker. Vital Signs - 8 hr 01/26/21 15:03 01/26/21 16:23 01/26/21 16:30 Temperature 97.5 F L Pulse Rate 105 H 92 H 96 H Respiratory Rate 20 18 18 Blood Pressure 126/59 L Pulse Oximetry 96 99 100 01/26/21 16:31 01/26/21 16:48 01/26/21 17:00 Temperature Pulse Rate 100 H 104 H 100 H Respiratory Rate 19 25 H 22 Blood Pressure 169/64 H 157/96 H 136/60 Pulse Oximetry 100 100 98 01/26/21 17:31 01/26/21 17:32 01/26/21 17:39 Temperature Pulse Rate 95 H Respiratory Rate 19 Blood Pressure 144/94 H Pulse Oximetry 100 100 98 01/26/21 18:00 01/26/21 18:01 Temperature Pulse Rate 98 H 99 H Respiratory Rate 20 16 Blood Pressure 144/88 H Pulse Oximetry 97 97
--- NOTE | 2021-01-26 20:27 | PM.HP.1 ---
History of Present Illness History of Present Illness Chief complaint: black diarrhea Narrative: Silvia Bills is an 81-year-old retired female with a prior history of hiatal hernia and previous workups for upper GI bleeding presented with a 1 day history of 2 episodes of significant rectal bleeding and 1 episode of hematemesis.? Over the course of yesterday she was feeling poorly, very fatigued, hot, but not knowing whether she had a fever or not.? Midnight last night she woke up and had significant urge to go to the bathroom, she had a significant amount of diarrhea and during that same time became nauseous and was able to position herself towards her bathroom sink where she was simultaneously vomiting and having diarrhea.? She states that both the diarrhea and vomitus had what she refers to as ?globs?, she was not able to tell whether they were clots or not.? She then returned to bed and arose at around 1:00 p.m. today and again had diarrhea that she states was pretty liquidy and very dark.? She denies vomiting at that time.? She also felt very tired and weak.? She called her PCPs office and talk to the office nurse who directed her to the emergency department.? She does state that she brought herself to the emergency department but was profoundly fatigued getting very exhausted every time she put on an article of clothing.? She has recently completed a course of antibiotics for a urinary tract infection 2 days ago.? States she cannot take Cipro and believes it might have been Bactrim that was prescribed to her however nothing is showing in her home medication or pharmacy interface. The emergency department provider did consult with general surgery who will see the patient in the morning and consider whether not to scope her which is likely. Patient is afebrile, blood pressure 134/68, heart rate 105, respiratory rate 20, oxygen saturation of 100% on room air, she weighs 71.6 kg with a BMI of 25.4. Hemoglobin and hematocrit are 9.1 and 27.2 which are close to her baseline, sodium was 134, BUN 58, she does have a creatinine bump of 1.05, prior to the this value her creatinine is were within normal limits her EGFR is 50.2, glucose 112, AST 50, ALT 39, their presence of WBC in her urine with many bacteria and will be cultured, COVID-19 PCR is negative. Patient History Medical History (Updated 01/26/21 @ 20:28 by ERIBERTO Barbosa) Family hx of colon cancer Hiatal hernia Surgical History (Updated 01/26/21 @ 20:29 by ERIBERTO Barbosa) History of repair of ACL Family & Social History Family History (Updated 01/26/21 @ 21:35 by ERIBERTO Barbosa) Father ALS (amyotrophic lateral sclerosis) Mother Colon cancer Social History: household members spouse Prior Living Arrangements House Safety & Behavioral: Feels Safe in Current Yes Environment Been Physically Hurt or No Threatened By a Person Suicidal Ideation Description None Suicide Plan Description No Plan Tobacco & Substance use: Smoking Status Quit 22 years ago, 40+ pack history alcohol intake frequency 3 or more drinks per day Substance Use Type does not use Meds Home Medications and Allergies Home Medications Medication Instructions Recorded Confirmed Type sertraline 50 mg tablet 100 mg PO QDAY #0 07/24/12 01/26/21 History pantoprazole 40 mg tablet,delayed 40 mg PO DAILY 05/19/19 01/26/21 History release Allergies Allergy/AdvReac Type Severity Reaction Status Date / Time ciprofloxacin [From Cipro] Allergy Mild Verified 05/19/19 13:13 peanut Allergy Unknown Verified 05/19/19 13:13 LACTOSE INTOLERANCE Allergy Mild CHEESE Uncoded 05/19/19 13:13 OK-NO MILK OR OTHERWISE MILK PRODUCTS & NO SOY MILK Review of Systems Review of Systems ROS: Yes All systems reviewed with the patient and are negative except as otherwise documented Exam Vital Signs (past 8 hours): - 01/26/21 15:03 01/26/21 16:23 01/26/21 16:30 Temperature 97.5 F L Pulse Rate 105 H 92 H 96 H Respiratory Rate 20 18 18 Blood Pressure 126/59 L Pulse Oximetry 96 99 100 01/26/21 16:31 01/26/21 16:48 01/26/21 17:00 Temperature Pulse Rate 100 H 104 H 100 H Respiratory Rate 19 25 H 22 Blood Pressure 169/64 H 157/96 H 136/60 Pulse Oximetry 100 100 98 01/26/21 17:31 01/26/21 17:32 01/26/21 17:39 Temperature Pulse Rate 95 H Respiratory Rate 19 Blood Pressure 144/94 H Pulse Oximetry 100 100 98 01/26/21 18:00 01/26/21 18:01 Temperature Pulse Rate 98 H 99 H Respiratory Rate 20 16 Blood Pressure 144/88 H Pulse Oximetry 97 97 Oxygen Delivery Method Room Air Narrative Exam Narrative: Gen: Alert, oriented, well-developed 81 y.o. female, appears comfortable now, appears dry HEENT: normocephalic, atraumatic, conjunctiva clear, sclera non-icteric, oral mucosa pink and moist Neck: supple, full ROM, no JVD, trachea is midline Resp: Lungs CTA, non-labored breathing CV: RRR, no murmur or rubs Abd: soft, non-tender, normoactive BTs Skin: no lesions or rashes, dry and intact Neuro: Alert and oriented X 4 w/no focal deficits. Speech clear and coherent. Extremities: moves all 4 extremities, is ambulatory, negative Glen?s sign Psyche: normal mood and affect. Objective Labs Result Diagrams: 01/26/21 16:25 01/26/21 16:25 Labs: Laboratory Results - last 24 hr 01/26/21 01/26/21 01/26/21 16:25 16:25 16:25 WBC 7.9 RBC 3.00 L Hgb 9.1 L Hct 27.2 L MCV 90.6 MCH 30.3 MCHC 33.5 RDW 14.4 Plt Count 180 Neut % (Auto) 86.1 H Lymph % (Auto) 7.1 L [place] % (Auto) 5.9 Eos % (Auto) 0.2 L Baso % (Auto) 0.7 Neut # (Auto) 6800 Lymph # (Auto) 600 L [place] # (Auto) 500 Eos # (Auto) 0 Baso # (Auto) 100 PT INR APTT Sodium 134 L Potassium 4.6 Chloride 100 Carbon Dioxide 24 BUN 58 H Creatinine 1.05 H Estimated GFR 50.2 L BUN/Creatinine Ratio 55.2 H Glucose 112 H Lactate Calcium 9.2 Total Bilirubin 0.2 AST 50 H ALT 39 H Alkaline Phosphatase 78 Total Protein 6.4 Albumin 3.8 Globulin 2.6 Albumin/Globulin Ratio 1.5 Urine RBC Urine WBC Urine Bacteria Ur Culture Indicated? SARS-CoV-2 (PCR) Blood Type O Positive Antibody Screen Negative 01/26/21 01/26/21 01/26/21 16:25 16:25 16:40 WBC RBC Hgb Hct MCV MCH MCHC RDW Plt Count Neut % (Auto) Lymph % (Auto) [place] % (Auto) Eos % (Auto) Baso % (Auto) Neut # (Auto) Lymph # (Auto) [place] # (Auto) Eos # (Auto) Baso # (Auto) PT 11.4 INR 1.0 APTT 25 L Sodium Potassium Chloride Carbon Dioxide BUN Creatinine Estimated GFR BUN/Creatinine Ratio Glucose Lactate 0.7 Calcium Total Bilirubin AST ALT Alkaline Phosphatase Total Protein Albumin Globulin Albumin/Globulin Ratio Urine RBC 0-1/hpf Urine WBC 30-100/hpf H Urine Bacteria Many (>30) H Ur Culture Indicated? Specimen cultured SARS-CoV-2 (PCR) Blood Type Antibody Screen 01/26/21 17:16 WBC RBC Hgb Hct MCV MCH MCHC RDW Plt Count Neut % (Auto) Lymph % (Auto) [place] % (Auto) Eos % (Auto) Baso % (Auto) Neut # (Auto) Lymph # (Auto) [place] # (Auto) Eos # (Auto) Baso # (Auto) PT INR APTT Sodium Potassium Chloride Carbon Dioxide BUN Creatinine Estimated GFR BUN/Creatinine Ratio Glucose Lactate Calcium Total Bilirubin AST ALT Alkaline Phosphatase Total Protein Albumin Globulin Albumin/Globulin Ratio Urine RBC Urine WBC Urine Bacteria Ur Culture Indicated? SARS-CoV-2 (PCR) Negative Blood Type Antibody Screen Assessment & Plan Assessment & Plan narrative: Joan Green is admitted for further evaluation and management of a presumed upper GI bleed. 1. Suspected upper GI bleed, acute, present on admission Recheck H&H at midnight and then again [address] Damico has been consulted and will see the patient in the morning NPO after midnight She has been typed and screened. Protonix IV 40 mg b.i.d. she received her 1st dose in the ED and will receive another dose 2099. 2. Resolving UTI She completed a 3 day course of oral antibiotic therapy, will add on 2 doses of IV ceftriaxone VTE Prophylaxis: Wells risk score 1.5 pharmacological anticoagulation is contraindicated due to the patient's active bleeding Patient is admitted to the inpatient service due to the severity of disease, risks of further disease progression and this stay is expected to exceed 2 midnights. FEN: IV fluids: NS at 100 ml/hour, diet: general, followed by NPO past midnight, labs: CBC, C/BMP, liver enzymes, Mag, PT/INR Consultants Dr. Damico care and involvement in the patient?s care is appreciated. Dispo: Probably home Code status: DNR/DNI as discussed with the patient who identifies her son as her surrogate and POA. [X] I have utilized all available immediate resources to obtain, update, or review of the patient's current medications COVID-19 COVID-19 status: Negative Result date/Date tested (Pos, Neg/Pending): 01/26/21 Scores Wells' Criteria for PE Clinical signs and symptoms of DVT: No PE is #1 Dx or equally likely: No Heart rate > 100: Yes Immobilization at least 3 days or surg in previous 4 weeks: No History of PE or DVT: No Hemoptysis: No Malignancy w/Treatment within 6 months or palliative: No Wells' PE Score total: 1.5 Quality VTE Deep Vein Thrombosis/Pulmonary Embolism Present on Admission: No MIPS - Admit I confirm the patient?s Advance Care Plan is present, Code status is documented, Surrogate decision maker is in patient?s record [If Yes, STOP here]: Yes MIPS - DC The patient has current or prior documentation of left ventricular ejection fraction (LVEF) less than 40%, or moderate or severely depressed left ventricular systolic function.: No
[2021-01-26] MEDS: SODIUM CHLORIDE 0.9% 1,000 ML 100 ML IV (20:53)
[2021-01-27] VITALS (10 sets, daily range): BP systolic 108–174; BP diastolic 53–85; PULSE 78–98; RESP 14–18; TEMP 36–36.6; O2SAT 96–99
[2021-01-27] MEDS: cefTRIAXone 1,000 MG in SODIUM CHLORIDE 0.9% 100 ML 200 ML IV (00:32)
[2021-01-27 00:54] LABS: Add Manual Diff / Slide Review NO; Basophils Absolute Auto 200 /uL (0-100); Basophils Percent Auto 2.3 % (0-2); Eosinophils Absolute Auto 100 /uL (0-450); Eosinophils Percent Auto 0.8 % (2-4); Hematocrit 24.5 % (36-46); Hemoglobin 8.3 g/dL (12.0-16.0); Lymphocytes Absolute Auto 500 /uL (1100-4500); Lymphocytes Percent Auto 5.5 % (25-40); Mean Corpuscular HGB Conc 33.8 % (30-36); Mean Corpuscular Hemoglobin 30.5 PG (26-34); Mean Corpuscular Volume 90.3 fL (80-100); Monocytes Absolute Auto 600 /uL (0-900); Monocytes Percent Auto 6.6 % (3-14); Neutrophils Absolute Auto 8300 /uL (1500-7000); Neutrophils Percent Auto 84.8 % (50-75); Platelet Count 189 X10^3/uL (150-400); Red Blood Cell Count 2.72 X10^6/uL (4.0-5.2); Red Cell Distribution Width 14.6 % (11.6-14.8); White Blood Cell Count 9.7 X10^3/uL (4.5-11.0)
[2021-01-27 05:47] LABS: Add Manual Diff / Slide Review NO; Basophils Absolute Auto 0 /uL (0-100); Basophils Percent Auto 0.4 % (0-2); Eosinophils Absolute Auto 100 /uL (0-450); Eosinophils Percent Auto 1.1 % (2-4); Hematocrit 23.1 % (36-46); Hemoglobin 7.7 g/dL (12.0-16.0); Lymphocytes Absolute Auto 1000 /uL (1100-4500); Lymphocytes Percent Auto 13.4 % (25-40); Mean Corpuscular HGB Conc 33.3 % (30-36); Mean Corpuscular Hemoglobin 30.1 PG (26-34); Mean Corpuscular Volume 90.3 fL (80-100); Monocytes Absolute Auto 500 /uL (0-900); Monocytes Percent Auto 7.4 % (3-14); Neutrophils Absolute Auto 5600 /uL (1500-7000); Neutrophils Percent Auto 77.7 % (50-75); Platelet Count 166 X10^3/uL (150-400); Red Blood Cell Count 2.55 X10^6/uL (4.0-5.2); Red Cell Distribution Width 14.4 % (11.6-14.8); White Blood Cell Count 7.2 X10^3/uL (4.5-11.0)
[2021-01-27 05:52] LABS: BUN Creatinine Ratio 36.9 (6-22); Blood Urea Nitrogen 41 mg/dL (7-17); Calcium 8.7 mg/dL (8.4-10.2); Carbon Dioxide 23 mmol/L (22-32); Chloride 108 mmol/L (98-107); Estimated Glomerular Filt Rate 47.1 mL/min (>60); Glucose 93 mg/dL (80-110); HEMOLYSIS < 15 (0-50); Magnesium 1.8 mg/dL (1.6-2.3); Potassium 3.7 mmol/L (3.4-5.1); Sodium 136 mmol/L (137-145)
[2021-01-27] MEDS: SODIUM CHLORIDE 0.9% 1,000 ML 100 ML IV ×2 (10:01→20:12)
[2021-01-27] MEDS: SODIUM CHLORIDE 0.9% FLUSH 10 ML IV ×2 (10:01→22:15)
[2021-01-27] MEDS: PANTOPRAZOLE 40 MG VIAL IV ×2 (10:01→20:12)
--- NOTE | 2021-01-27 10:34 | CM.DANOTE ---
DCP: Case received, EMR reviewed and met with patient. Introduced self and role. Was able to obtain information regarding patient's baseline activity level prior to hospitalization. DCP assessment completed with information currently available. Patient is an 81 year old female who admitted yesterday afternoon to the care of the hospital team. PCP: Dr. Worthington. Payer: confirmed: Medicare/[employer]. Patient came to the hospital via private vehicle secondary to having some hematemesis/rectal bleeding, as well as black tarry stools. Patient does have history of anemia. Patient had just finished ABO for UTI. Patient is diagnosed with GI bleed. Plan is for surgery consult for a scope procedure. Met with patient in her room. She was sitting up in her chair, alert and oriented. Confirmed with patient that she resides in [place] alone. She does have a son named Wil that lives in [place]. Confirmed with patient that she is independent mobility castillo, and is driving. Her primary care provider is Dr. Worthington. P: DCP to continue to follow. Patient should be able to go home when she is medically stable. Anh Decker RN/Manager Pharmaceutical Discharge Planning/Care Management Advanced directive, confirm from FAMILY Start: 01/27/21 02:26 Freq: Q24H Status: Active Protocol: Document 01/27/21 04:22 MW (Rec: 01/27/21 04:22 MW [id number]) Advance Directive, confirm on record Time 04:22 Person contacted pt Copy received No CM Discharge Assessment Start: 01/27/21 10:32 Freq: Status: Active Protocol: Document 01/27/21 10:32 (Rec: 01/27/21 10:34 [id number]) Discharge Planning Assessment Assigned Commercial Analyst Anh Decker RN/Manager Pharmaceutical Advance Directives? Yes Advance Directives on File No History Provided By Patient,Medical Record Prior Living Arrangements House Household Members spouse Type of transporation used prior to Drives own vehicle admit Independent with ADL's Yes Is patient alert and oriented? Yes Caregiver for Another No Barriers to Discharge No Discharge Plan Home Transportation Arrangement Family Referrals Initiated None needed Whiteboard Updated in Patient Room with Yes name and ext. # of Commercial Analyst Review Status In Process Next Review Type Continued Stay Review
--- NOTE | 2021-01-27 11:49 | P.CONS_ITS ---
History of Present Illness Consult details Date Patient Seen: 01/27/21 Time Patient Seen: 09:30 Chief complaint: black diarrhea Reason for consult: GI bleed. Requesting provider: Rasta Almeida Narrative: New onset of black diarrhea yesterday, and again this morning. Some red blood but not like years ago when she had a life threatening bleed and a portion of her colon was removed. Some light headedness. No other symptoms. Meds Home Medications and Allergies Home Medications Medication Instructions Recorded Confirmed Type sertraline 50 mg tablet 100 mg PO QDAY #0 07/24/12 01/26/21 History pantoprazole 40 mg tablet,delayed 40 mg PO DAILY 05/19/19 01/26/21 History release Allergies Allergy/AdvReac Type Severity Reaction Status Date / Time ciprofloxacin [From Cipro] Allergy Mild Verified 05/19/19 13:13 peanut Allergy Unknown Verified 05/19/19 13:13 LACTOSE INTOLERANCE Allergy Mild CHEESE Uncoded 05/19/19 13:13 OK-NO MILK OR OTHERWISE MILK PRODUCTS & NO SOY MILK Review of Systems Review of Systems ROS: Yes All systems reviewed with the patient and are negative except as otherwise documented Exam Vital Signs (past 8 hours): - 01/27/21 04:23 01/27/21 06:33 01/27/21 06:50 Temperature 96.8 F L 97.6 F 97.7 F Pulse Rate 85 84 85 Respiratory Rate 16 16 16 Blood Pressure 122/61 108/53 L 120/53 L Pulse Oximetry 96 01/27/21 08:36 01/27/21 09:54 01/27/21 09:58 Temperature 97.7 F 97.9 F Pulse Rate 86 78 Respiratory Rate 18 16 Blood Pressure 121/56 L 118/54 L Pulse Oximetry 98 98 Oxygen Delivery Method Room Air Oxygen Flow Rate 0 Const General: cooperative and comfortable Nutritional Appearance: well nourished Orientation: alert and awake HENMT Head: normal to inspection and normocephalic Mouth: oral mucosae normal Eyes Alignment and Position: alignment normal Periorbital: periorbital findings normal Neck Neck: trachea midline Resp Effort & Inspection: normal respiratory effort and able to speak in complete sentences Cardio Rate: regular rate Rhythm: regular rhythm GI Inspection: normal to inspection Palpation: soft Skin General: atrophy and dry skin Neuro Cognition: normal cognition Extrem General: full ROM Psych Appearance: grossly normal Affect: normal affect Thought Process: normal Objective Labs Result Diagrams: 01/27/21 05:20 01/27/21 05:20 Labs: Laboratory Results - last 24 hr 01/26/21 01/26/21 01/26/21 16:25 16:25 16:25 WBC 7.9 RBC 3.00 L Hgb 9.1 L Hct 27.2 L MCV 90.6 MCH 30.3 MCHC 33.5 RDW 14.4 Plt Count 180 Neut % (Auto) 86.1 H Lymph % (Auto) 7.1 L [place] % (Auto) 5.9 Eos % (Auto) 0.2 L Baso % (Auto) 0.7 Neut # (Auto) 6800 Lymph # (Auto) 600 L [place] # (Auto) 500 Eos # (Auto) 0 Baso # (Auto) 100 PT INR APTT Sodium 134 L Potassium 4.6 Chloride 100 Carbon Dioxide 24 BUN 58 H Creatinine 1.05 H Estimated GFR 50.2 L BUN/Creatinine Ratio 55.2 H Glucose 112 H Lactate Calcium 9.2 Magnesium Total Bilirubin 0.2 AST 50 H ALT 39 H Alkaline Phosphatase 78 Total Protein 6.4 Albumin 3.8 Globulin 2.6 Albumin/Globulin Ratio 1.5 Urine RBC Urine WBC Urine Bacteria Ur Culture Indicated? SARS-CoV-2 (PCR) Blood Type O Positive Antibody Screen Negative Crossmatch See Detail 01/26/21 01/26/21 01/26/21 16:25 16:25 16:40 WBC RBC Hgb Hct MCV MCH MCHC RDW Plt Count Neut % (Auto) Lymph % (Auto) [place] % (Auto) Eos % (Auto) Baso % (Auto) Neut # (Auto) Lymph # (Auto) [place] # (Auto) Eos # (Auto) Baso # (Auto) PT 11.4 INR 1.0 APTT 25 L Sodium Potassium Chloride Carbon Dioxide BUN Creatinine Estimated GFR BUN/Creatinine Ratio Glucose Lactate 0.7 Calcium Magnesium Total Bilirubin AST ALT Alkaline Phosphatase Total Protein Albumin Globulin Albumin/Globulin Ratio Urine RBC 0-1/hpf Urine WBC 30-100/hpf H Urine Bacteria Many (>30) H Ur Culture Indicated? Specimen cultured SARS-CoV-2 (PCR) Blood Type Antibody Screen Crossmatch 01/26/21 01/27/21 01/27/21 17:16 00:35 05:20 WBC 9.7 7.2 RBC 2.72 L 2.55 L Hgb 8.3 L 7.7 L Hct 24.5 L 23.1 L MCV 90.3 90.3 MCH 30.5 30.1 MCHC 33.8 33.3 RDW 14.6 14.4 Plt Count 189 166 Neut % (Auto) 84.8 H 77.7 H Lymph % (Auto) 5.5 L 13.4 L [place] % (Auto) 6.6 7.4 Eos % (Auto) 0.8 L 1.1 L Baso % (Auto) 2.3 H 0.4 Neut # (Auto) 8300 H 5600 Lymph # (Auto) 500 L 1000 L [place] # (Auto) 600 500 Eos # (Auto) 100 100 Baso # (Auto) 200 H 0 PT INR APTT Sodium Potassium Chloride Carbon Dioxide BUN Creatinine Estimated GFR BUN/Creatinine Ratio Glucose Lactate Calcium Magnesium Total Bilirubin AST ALT Alkaline Phosphatase Total Protein Albumin Globulin Albumin/Globulin Ratio Urine RBC Urine WBC Urine Bacteria Ur Culture Indicated? SARS-CoV-2 (PCR) Negative Blood Type Antibody Screen Crossmatch 01/27/21 05:20 WBC RBC Hgb Hct MCV MCH MCHC RDW Plt Count Neut % (Auto) Lymph % (Auto) [place] % (Auto) Eos % (Auto) Baso % (Auto) Neut # (Auto) Lymph # (Auto) [place] # (Auto) Eos # (Auto) Baso # (Auto) PT INR APTT Sodium 136 L Potassium 3.7 Chloride 108 H Carbon Dioxide 23 BUN 41 H Creatinine 1.11 H Estimated GFR 47.1 L BUN/Creatinine Ratio 36.9 H Glucose 93 Lactate Calcium 8.7 Magnesium 1.8 Total Bilirubin AST ALT Alkaline Phosphatase Total Protein Albumin Globulin Albumin/Globulin Ratio Urine RBC Urine WBC Urine Bacteria Ur Culture Indicated? 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 No anticoagulation in home meds. No antiulcer meds. Been 3-4 years since last colonoscopy Plan: Bowel prep EGD and colonoscopy tomorrow with anesthesia PPI started by medicine. COVID-19 COVID-19 status: Negative Time Spent With Patient Time with patient: 30 to 49 minutes with 50% spent counseling/coordinating care Critical Care time: I spent a total of [] minutes of critical care time on this patient's care today; this time is exclusive of procedural time.
[2021-01-27] MEDS: PEG3350/SOD SULF,BICARB,CL/KCL 4,000 ML SOLUTION 4000 ML PO (13:56)
--- NOTE | 2021-01-27 14:06 | PC.NURSE ---
Patient had small formed soft stool, guiac+. Patient beginning golytly prep at 1400.
--- NOTE | 2021-01-27 14:57 | P.PN_ITS ---
Subjective Subjective Date Patient Seen: 01/27/21 Time Patient Seen: 08:00 Interval history: Today she has no complaints. She has not noted further bleeding since she has been here in the hospital. Exam Vital Signs (past 8 hours): - 01/27/21 08:36 01/27/21 09:54 01/27/21 09:58 Temperature 97.7 F 97.9 F Pulse Rate 86 78 Respiratory Rate 18 16 Blood Pressure 121/56 L 118/54 L Pulse Oximetry 98 98 Oxygen Delivery Method Room Air Oxygen Flow Rate 0 Narrative Exam Narrative: GEN: no acute distress CV: regular rate and rhythm, no murmurs PULM: clear bilaterally, no wheezes, rhonchi, rales ABD: soft, nontender, nondistended, no organomegaly, normal bowel sounds EXT: warm and well perfused with no edema NEURO: awake, alert, oriented, no focal deficits Objective Labs Result Diagrams: 01/27/21 05:20 01/27/21 05:20 Labs: Laboratory Results - last 24 hr 01/26/21 01/26/21 01/26/21 16:25 16:25 16:25 WBC 7.9 RBC 3.00 L Hgb 9.1 L Hct 27.2 L MCV 90.6 MCH 30.3 MCHC 33.5 RDW 14.4 Plt Count 180 Neut % (Auto) 86.1 H Lymph % (Auto) 7.1 L [place] % (Auto) 5.9 Eos % (Auto) 0.2 L Baso % (Auto) 0.7 Neut # (Auto) 6800 Lymph # (Auto) 600 L [place] # (Auto) 500 Eos # (Auto) 0 Baso # (Auto) 100 PT INR APTT Sodium 134 L Potassium 4.6 Chloride 100 Carbon Dioxide 24 BUN 58 H Creatinine 1.05 H Estimated GFR 50.2 L BUN/Creatinine Ratio 55.2 H Glucose 112 H Lactate Calcium 9.2 Magnesium Total Bilirubin 0.2 AST 50 H ALT 39 H Alkaline Phosphatase 78 Total Protein 6.4 Albumin 3.8 Globulin 2.6 Albumin/Globulin Ratio 1.5 Urine RBC Urine WBC Urine Bacteria Ur Culture Indicated? SARS-CoV-2 (PCR) Blood Type O Positive Antibody Screen Negative Crossmatch See Detail 01/26/21 01/26/21 01/26/21 16:25 16:25 16:40 WBC RBC Hgb Hct MCV MCH MCHC RDW Plt Count Neut % (Auto) Lymph % (Auto) [place] % (Auto) Eos % (Auto) Baso % (Auto) Neut # (Auto) Lymph # (Auto) [place] # (Auto) Eos # (Auto) Baso # (Auto) PT 11.4 INR 1.0 APTT 25 L Sodium Potassium Chloride Carbon Dioxide BUN Creatinine Estimated GFR BUN/Creatinine Ratio Glucose Lactate 0.7 Calcium Magnesium Total Bilirubin AST ALT Alkaline Phosphatase Total Protein Albumin Globulin Albumin/Globulin Ratio Urine RBC 0-1/hpf Urine WBC 30-100/hpf H Urine Bacteria Many (>30) H Ur Culture Indicated? Specimen cultured SARS-CoV-2 (PCR) Blood Type Antibody Screen Crossmatch 01/26/21 01/27/21 01/27/21 17:16 00:35 05:20 WBC 9.7 7.2 RBC 2.72 L 2.55 L Hgb 8.3 L 7.7 L Hct 24.5 L 23.1 L MCV 90.3 90.3 MCH 30.5 30.1 MCHC 33.8 33.3 RDW 14.6 14.4 Plt Count 189 166 Neut % (Auto) 84.8 H 77.7 H Lymph % (Auto) 5.5 L 13.4 L [place] % (Auto) 6.6 7.4 Eos % (Auto) 0.8 L 1.1 L Baso % (Auto) 2.3 H 0.4 Neut # (Auto) 8300 H 5600 Lymph # (Auto) 500 L 1000 L [place] # (Auto) 600 500 Eos # (Auto) 100 100 Baso # (Auto) 200 H 0 PT INR APTT Sodium Potassium Chloride Carbon Dioxide BUN Creatinine Estimated GFR BUN/Creatinine Ratio Glucose Lactate Calcium Magnesium Total Bilirubin AST ALT Alkaline Phosphatase Total Protein Albumin Globulin Albumin/Globulin Ratio Urine RBC Urine WBC Urine Bacteria Ur Culture Indicated? SARS-CoV-2 (PCR) Negative Blood Type Antibody Screen Crossmatch 01/27/21 05:20 WBC RBC Hgb Hct MCV MCH MCHC RDW Plt Count Neut % (Auto) Lymph % (Auto) [place] % (Auto) Eos % (Auto) Baso % (Auto) Neut # (Auto) Lymph # (Auto) [place] # (Auto) Eos # (Auto) Baso # (Auto) PT INR APTT Sodium 136 L Potassium 3.7 Chloride 108 H Carbon Dioxide 23 BUN 41 H Creatinine 1.11 H Estimated GFR 47.1 L BUN/Creatinine Ratio 36.9 H Glucose 93 Lactate Calcium 8.7 Magnesium 1.8 Total Bilirubin AST ALT Alkaline Phosphatase Total Protein Albumin Globulin Albumin/Globulin Ratio Urine RBC Urine WBC Urine Bacteria Ur Culture Indicated? 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 Green is an 81W who presents with a GI bleeding. 1. GI bleeding, acute -this AM hgb continued to drop now down to 7.7 -appreciate surgery consult plan for EGD/colo -continue protonix IV BID -transfuse for 1U PRBC for continued bleeding 2. UTI, resolved -stop antibiotics Time Spent With Patient Critical Care time: I spent a total of [] minutes of critical care time on this patient's care today; this time is exclusive of procedural time. Quality VTE Deep Vein Thrombosis/Pulmonary Embolism Present on Admission: No
[2021-01-28] VITALS (10 sets, daily range): BP systolic 89–170; BP diastolic 4–70; PULSE 81–88; RESP 15–25; TEMP 36.3–37.1; O2SAT 92–98; BMI 24.2
[2021-01-28] MEDS: SODIUM CHLORIDE 0.9% 1,000 ML 100 ML IV (06:57)
[2021-01-28 07:03] LABS: Hemoglobin 8.1 g/dL (12.0-16.0)
--- NOTE | 2021-01-28 08:36 | PC.NURSE ---
Patient down for scope at 0820.
[2021-01-28] MEDS: LACTATED RINGERS 1,000 ML 42 ML IV (08:42)
--- NOTE | 2021-01-28 08:45 | PM.PREOP ---
Pre-operative Note COVID-19 COVID-19 status: Positive Result date/Date tested (Pos, Neg/Pending): 01/28/21 Interval Note History & Physical reviewed/Exam performed by Physician: Yes Changes to H&P: No
--- NOTE | 2021-01-28 09:51 | PM.OP.ENDO ---
Operative Date/Time/Diagnoses Date of procedure: 01/28/21 Time of procedure: 09:51 Pre-op diagnosis: GI bleed Post-op diagnosis: same Procedure & Clinicians Study performed: Colonoscopy Same procedure as scheduled: Yes Indications: GI bleed Surgeon: Regina Damico Procedure Notes SCOAP/Timeout: Done Procedure in detail: Preop diagnosis: GI bleed with acute blood loss anemia Postop diagnosis: Same Operative procedure: Colonoscopy with anesthesia Surgeon: Licha Damico MD Anesthetic: Mac Findings: Large descending colon diverticuli, no active bleeding. No source of prior bleeding. No polyps. There was a food bolus in the cecum unable to dislodge with scope or irrigation. Procedure: Patient placed in a lateral position. Rectal exam is performed showing decreased tone no masses. Colonoscope inserted into the rectum and advanced to the ileocecal valve with minimal difficulty. Insufflation and extractions scope with the above findings. Impression: Large descending diverticulitis. No polyps. No source of active bleeding at this time. Plan: EGD Findings: diverticulosis Specimen(s): none sent Complications: none Impression: Patient had no polyps. She did have large to be sending diverticuli. No evidence of source of GI bleed repeat colonoscopy 10 years Post-procedure Recommendations: Colonscopy in 10 years
--- NOTE | 2021-01-28 10:17 | SUR.PHASEI ---
report called to ramona Balbuena transferred back to room via bed.
--- NOTE | 2021-01-28 10:55 | PC.NURSE ---
Pt rec'd from PACU at 10:30 Pt A&O aware of transfer to the room. Pt asking appropriate questions. Handing over care to Vish.
--- NOTE | 2021-01-28 10:56 | SUR.PHASEI ---
Pt left with Omer in stable condition, bed low, locked and SCD's on.
--- NOTE | 2021-01-28 11:37 | PM.OP.ENDO ---
Operative Date/Time/Diagnoses Date of procedure: 01/28/21 Time of procedure: 10:15 Pre-op diagnosis: GI bleed Post-op diagnosis: same Procedure & Clinicians Study performed: EGD Same procedure as scheduled: Yes Indications: GI bleed Surgeon: Regina Damico Procedure Notes Procedure in detail: Preop diagnosis: GI bleed Postop diagnosis: Same Operative procedure: EGD with anesthesia Findings: Large hiatal hernia. No evidence of source of bleeding in the upper intestine. Surgeon: Licha Damico MD Procedure: Patient placed in a lateral position. Anesthetic was provided. Scope inserted into the esophagus and advanced into the stomach. With the insufflation identified the pylorus intubated and the duodenum. She had evidence of scarring from previous presumed erosions or ulcers, but no active process at this point. No active bleeding. For 2nd portion of duodenum visualized. Extraction of the scope including a retroflex revealed a large hiatal hernia. Impression: No bleeding source in the esophagus, hiatal hernia, remainder of the stomach. Duodenal also within normal limits. Plan: Proceed with colonoscopy
[2021-01-28] MEDS: PANTOPRAZOLE 40 MG VIAL IV (11:42)
[2021-01-28] MEDS: SODIUM CHLORIDE 0.9% FLUSH 10 ML IV (11:42)
[2021-01-28] MEDS: cefTRIAXone 1,000 MG in SODIUM CHLORIDE 0.9% 100 ML 200 ML IV (11:43)
--- NOTE | 2021-01-28 14:20 | PC.NURSE ---
Went over dc instructions and medications with patient, questions answered. Rx given for new meds patient will call her pcp to schedule a follow up appt. patient taken via wc to vehicle, patient had all her belonging.Valuables from safe returned to patient and signed for.
--- NOTE | 2021-01-28 22:38 | PM.DS.1 ---
History of Present Illness History of Present Illness Chief complaint: black diarrhea Narrative: Ralph Greenwood: Silvia Bills is an 81-year-old retired female with a prior history of hiatal hernia and previous workups for upper GI bleeding presented with a 1 day history of 2 episodes of significant rectal bleeding and 1 episode of hematemesis. Over the course of yesterday she was feeling poorly, very fatigued, hot, but not knowing whether she had a fever or not. Midnight last night she woke up and had significant urge to go to the bathroom, she had a significant amount of diarrhea and during that same time became nauseous and was able to position herself towards her bathroom sink where she was simultaneously vomiting and having diarrhea. She states that both the diarrhea and vomitus had what she refers to as ?globs?, she was not able to tell whether they were clots or not. She then returned to bed and arose at around 1:00 p.m. today and again had diarrhea that she states was pretty liquidy and very dark. She denies vomiting at that time. She also felt very tired and weak. She called her PCPs office and talk to the office nurse who directed her to the emergency department. She does state that she brought herself to the emergency department but was profoundly fatigued getting very exhausted every time she put on an article of clothing. She has recently completed a course of antibiotics for a urinary tract infection 2 days ago. States she cannot take Cipro and believes it might have been Bactrim that was prescribed to her however nothing is showing in her home medication or pharmacy interface. The emergency department provider did consult with general surgery who will see the patient in the morning and consider whether not to scope her which is likely. Patient is afebrile, blood pressure 134/68, heart rate 105, respiratory rate 20, oxygen saturation of 100% on room air, she weighs 71.6 kg with a BMI of 25.4. Hemoglobin and hematocrit are 9.1 and 27.2 which are close to her baseline, sodium was 134, BUN 58, she does have a creatinine bump of 1.05, prior to the this value her creatinine is were within normal limits her EGFR is 50.2, glucose 112, AST 50, ALT 39, their presence of WBC in her urine with many bacteria and will be cultured, COVID-19 PCR is negative. Discharge Providers Provider Date of admission: 01/26/21 17:49 Discharge Date: 01/28/21 Primary care physician: Janae Esteban PA-C Consults: 01/26/21 20:24 Consult to Physician Routine Comment: Consulting Provider: Regina Damico Reason for consultation: GI bleed Has provider been notified: Yes Discharge provider: Rasta Almeida MD Summary Hospital Course Discharge Diagnosis: 1. Gastrointestinal bleeding 2. UTI Hospital Course: Ms. Green was admitted with a GI bleed. She was noted to have dark stools, and one episode of vomiting with possible blood. She was initially anemic and dropped further to 7s. She was transfused 1U PRBC. She had no further bleeding. She had an EGD done which showed no acute process. Colonoscopy showed diverticulosis but active bleeding. She was able to be discharged. She was prescribed iron. She continued on her PPI. She was recommended to follow up with her PCP, and possiblity of diverticulosis bleeding was discussed. Also discussed the possibility of obscure bleeding and possible need for camera if she has further bleeding. She was also diagnosed with a UTI and prescribed a 3 day course of antibiotics. Exam Vital Signs (past 8 hours): Oxygen Delivery Method Room Air Oxygen Flow Rate 0 Narrative Exam Narrative: GEN: no acute distress CV: regular rate and rhythm, no murmurs PULM: clear bilaterally, no wheezes, rhonchi, rales ABD: soft, nontender, nondistended, no organomegaly, normal bowel sounds EXT: warm and well perfused with no edema NEURO: awake, alert, oriented, no focal deficits Objective Labs Result Diagrams: 01/28/21 06:50 01/27/21 05:20 Labs: Laboratory Results - last 24 hr 01/28/21 06:50 Hgb 8.1 L Hct 24.0 L PFSH Medical History Family hx of colon cancer Hiatal hernia Surgical History History of repair of ACL Family History Father ALS (amyotrophic lateral sclerosis) Mother Colon cancer Social History (Updated 01/26/21 @ 21:37 by ERIBERTO Barbosa) household members: none education level: college occupational status: other 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 Green came in the bleeding from her gastrointestinal tract. She did need a transfusion. She improved, and her bleeding stopped. She had an endoscopy and colonoscopy that showed no bleeding. She should follow up with her PCP within one week. You also had a UTI and were given antibiotics and should take the antibiotic for one more day. Discharge orders & Medications Prescriptions: New amoxicillin-pot clavulanate 875-125 mg tablet 1 tab PO BID Qty: 2 RF: 0 ferrous sulfate [Iron (ferrous sulfate)] 325 mg (65 mg iron) tablet 325 mg PO BID Qty: 60 RF: 0 Continued sertraline 50 MG tablet 100 mg PO QDAY Qty: 0 RF: 0 pantoprazole 40 mg tablet,delayed release (DR/EC) 40 mg PO DAILY Qty: 30 RF: 0 Follow up/Referrals: Janae Esteban PA-C [Primary Care Provider] - Diet/Activity/Treatments Diet: Regular Visit Report/Discharge Packet Instructions: DI for Urinary Tract Infection (UTI), DI for Diverticulosis Discharge Data Primary Care Provider: Janae Esteban Quality VTE Deep Vein Thrombosis/Pulmonary Embolism Present on Admission: No
== END 2021-01-28 14:22 | disposition home or self-care (01) | DRG 378 ==
LOC: ED 17:49 → AC 01-27 06:01
PROVIDERS: Nurse Practitioner Family; Surgery; Admitting Provider Internal Medicine; Emergency Provider Emergency Medicine; PCP Student in an Organized Health Care Education/Training Program; Referring Provider Emergency Medicine; Visit Provider Internal Medicine
PROC: 0DJD8ZZ Inspection of Lower Intestinal Tract, Via Natural or Artificial Opening Endoscopic (ICD-10-PCS; CPT 45378; principal; 2021-01-28 10:30)
PROC: 0DJ08ZZ Inspection of Upper Intestinal Tract, Via Natural or Artificial Opening Endoscopic (ICD-10-PCS; CPT 43235; 2021-01-28 10:30)
DX: K92.1 Melena (principal); N39.0 Urinary tract infection, site not specified; D62 Acute posthemorrhagic anemia; K92.0 Hematemesis; K57.30 Diverticulosis of large intestine without perforation or abscess without bleeding; K44.9 Diaphragmatic hernia without obstruction or gangrene; R03.0 Elevated blood-pressure reading, without diagnosis of hypertension; Z20.822 Contact with and (suspected) exposure to COVID-19
CPT/HCPCS: 36415; 36430; 43235; 45378; 80048; 80053; 81015; 82272; 83605; 83735; 85014; 85018; 85025; 85610; 85730; 86850; 86900; 86901; 87077; 87086; 87186; 87635; 93005; 93010; 94760; 96374; 99232; 99284; C9803; P9016; C9113; J0696; J2704

== ENCOUNTER → 2021-04-10 13:30 | Outpatient (CLI) | payer MEDICARE, SELFPAY ==
[2021-01-26 18:33] VITALS: BMI 25.4
[2021-04-10 14:37] LABS: Add Manual Diff / Slide Review NO; Basophils Absolute Auto 0 /uL (0-100); Basophils Percent Auto 0.9 % (0-2); Eosinophils Absolute Auto 200 /uL (0-450); Eosinophils Percent Auto 3.3 % (2-4); Hematocrit 37.7 % (36-46); Hemoglobin 12.7 g/dL (12.0-16.0); Lymphocytes Absolute Auto 700 /uL (1100-4500); Lymphocytes Percent Auto 12.3 % (25-40); Mean Corpuscular HGB Conc 33.6 % (30-36); Mean Corpuscular Hemoglobin 29.6 PG (26-34); Monocytes Absolute Auto 400 /uL (0-900); Monocytes Percent Auto 8.3 % (3-14); Neutrophils Absolute Auto 4100 /uL (1500-7000); Neutrophils Percent Auto 75.2 % (50-75); Platelet Count 176 X10^3/uL (150-400); Red Blood Cell Count 4.29 X10^6/uL (4.0-5.2); Red Cell Distribution Width 13.4 % (11.6-14.8); White Blood Cell Count 5.4 X10^3/uL (4.5-11.0)
[2021-04-10 15:16] LABS: Platelet Estimate Adequate on smear; Platelet Morphology Comment Normal; RBC Morphology Normal Morphology
[2021-04-10 15:21] LABS: HEMOLYSIS < 15 (0-50); Iron 90 ug/dL (37-170)
[2021-04-10 15:24] LABS: Alanine Aminotransferase 20 IU/L (<35); Albumin 4.5 g/dL (3.5-5.0); Albumin Globulin Ratio 1.5 (1.0-2.8); Alkaline Phosphatase 118 U/L (38-126); Aspartate Aminotransferase 36 IU/L (14-36); BUN Creatinine Ratio 22.9 (6-22); Bilirubin Total 0.3 mg/dL (0.2-1.3); Blood Urea Nitrogen 19 mg/dL (7-17); Calcium 9.6 mg/dL (8.4-10.2); Carbon Dioxide 25 mmol/L (22-32); Chloride 103 mmol/L (98-107); Estimated Glomerular Filt Rate > 60.0 mL/min (>60); Glucose 116 mg/dL (80-110); HEMOLYSIS < 15 (0-50); Potassium 4.3 mmol/L (3.4-5.1); Sodium 136 mmol/L (137-145); Total Protein 7.5 g/dL (6.3-8.2)
[2021-04-10 15:33] LABS: Percent Iron Saturation 29 % (15-50); Total Iron Binding Capacity 314 ug/dL (265-497); Transferrin 246 mg/dL (206-381)
[2021-04-10 16:01] LABS: Ferritin 35 ng/mL (11-264)
[2021-04-10 16:33] LABS: Folate 19.9 ng/mL (2.76-20.0); Vitamin B12 527 pg/mL (239-931)
[2021-04-11 08:49] LABS: Haptoglobin 130 mg/dL (41-333)
[2021-04-11 15:08] LABS: Free Kappa Lt Chains, Serum 25.1 mg/L (3.3-19.4); Free Lambda Lt Chains,Serum 20.5 mg/L (5.7-26.3)
[2021-04-12 13:24] LABS: Immunoglobulin A, Serum 197 mg/dL (64-422); Immunoglobulin G,Serum 804 mg/dL (586-1602); Immunoglobulin M, Serum 281 mg/dL (26-217)
[2021-04-12 14:36] LABS: Albumin 3.9 g/dL (2.9-4.4); Alpha-1-Globulin 0.3 g/dL (0.0-0.4); Alpha-2-Globulin 0.8 g/dL (0.4-1.0); Gamma Globulin 1.1 g/dL (0.4-1.8); Globulin Total 3.2 g/dL (2.2-3.9); Protein, Total 7.1 g/dL (6.0-8.5)
== END ==
PROVIDERS: PCP Internal Medicine; Referring Provider Internal Medicine; Visit Provider Internal Medicine
DX: D64.9 Anemia, unspecified (principal)
CPT/HCPCS: 36415; 80053; 82607; 82728; 82746; 82784; 83010; 83540; 83550; 83883; 84155; 84165; 85025; 86038; 86334

== ENCOUNTER → 2021-10-02 14:07 | Outpatient (CLI) | payer MEDICARE, SELFPAY ==
[2021-01-26 18:33] VITALS: BMI 25.4
--- NOTE | 2021-10-02 14:08 | DI.MG.S_ITS ---
BILATERAL DIGITAL SCREENING MAMMOGRAM 3D/2D WITH CAD: 10/02/2021 CLINICAL: Routine screening. Family history of breast cancer. Comparison is made to exams dated: 09/11/2017 mammogram - [facility] and 10/06/2018 mammogram - [facility]. There are scattered fibroglandular elements in both breasts. Current study was also evaluated with a Computer Aided Detection (CAD) system. There are benign calcifications in both breasts. There also are benign vascular calcifications in both breasts. No significant masses, calcifications, or other findings are seen in either breast. There has been no significant interval change. IMPRESSION: BENIGN There is no mammographic evidence of malignancy. A 1 year screening mammogram is recommended. Based on the Tyrer Cuzick model (a risk assessment model) the patient's lifetime risk is 0.8% and her 10 year risk is 0.0%. According to the ACR, ACS, and NCCN guidelines, an annual breast MRI exam along with mammogram is recommended if the patient's lifetime risk is 20% or greater. This exam was interpreted at Station ID: [id number]. NOTE: For mammograms, a report in lay terms will be sent to the patient. Approximately 15% of breast malignancies will not be visualized mammographically. In the management of a palpable breast mass, a negative mammogram must not discourage biopsy of a clinically suspicious lesion. Electronically Signed By: Bianca campbell/anna:10/02/2021 17:13:26 letter sent: Normal Exam ACR BI-RADS Category 2: Benign Finding(s) [id number]
== END ==
PROVIDERS: PCP Internal Medicine; Referring Provider Internal Medicine; Visit Provider Internal Medicine
DX: Z12.31 Encounter for screening mammogram for malignant neoplasm of breast (principal); Z80.3 Family history of malignant neoplasm of breast
CPT/HCPCS: 77063; 77067

== ENCOUNTER → 2021-12-12 16:50 | Outpatient (CLI) | payer MEDICARE, SELFPAY ==
[2021-01-26 18:33] VITALS: BMI 25.4
[2021-12-12 17:39] LABS: Hematocrit 36.8 % (36-46); Hemoglobin 12.3 g/dL (12.0-16.0); Mean Corpuscular HGB Conc 33.5 % (30-36); Mean Corpuscular Hemoglobin 29.4 PG (26-34); Mean Corpuscular Volume 87.9 fL (80-100); Platelet Count 176 X10^3/uL (150-400); Red Blood Cell Count 4.19 X10^6/uL (4.0-5.2); Red Cell Distribution Width 13.6 % (11.6-14.8); White Blood Cell Count 6.4 X10^3/uL (4.5-11.0)
[2021-12-12 18:06] LABS: Alanine Aminotransferase 17 IU/L (<35); Albumin 4.4 g/dL (3.5-5.0); Albumin Globulin Ratio 1.3 (1.0-2.8); Alkaline Phosphatase 122 U/L (38-126); Aspartate Aminotransferase 29 IU/L (14-36); BUN Creatinine Ratio 21.4 (6-22); Bilirubin Total 0.3 mg/dL (0.2-1.3); Blood Urea Nitrogen 18 mg/dL (7-17); Calcium 9.4 mg/dL (8.4-10.2); Carbon Dioxide 27 mmol/L (22-32); Chloride 101 mmol/L (98-107); Cholesterol 221 mg/dL (140-199); Estimated Glomerular Filt Rate > 60 mL/min (>60); Globulin 3.4 g/dL (1.7-4.1); Glucose 88 mg/dL (80-110); HDL Cholesterol 72 mg/dL (40-60); HEMOLYSIS < 15 (0-50); LDL Cholesterol Calculated 118 mg/dL (<100); Potassium 4.1 mmol/L (3.4-5.1); Sodium 138 mmol/L (137-145); Total Protein 7.8 g/dL (6.3-8.2); Triglycerides 157 mg/dL (35-150)
[2021-12-12 18:37] LABS: TSH w/ Reflex to FT4 1.45 uIU/mL (0.47-4.68)
== END ==
PROVIDERS: PCP Internal Medicine; Referring Provider Internal Medicine; Visit Provider Internal Medicine
DX: E78.2 Mixed hyperlipidemia (principal); R53.83 Other fatigue
CPT/HCPCS: 36415; 80053; 80061; 84443; 85027

== ENCOUNTER → 2022-06-18 14:47 | Outpatient (CLI) | payer MEDICARE, SELFPAY ==
[2021-01-26 18:33] VITALS: BMI 25.4
--- NOTE | 2022-06-18 14:49 | DI.RAD.S_ITS ---
PROCEDURE: XR CHEST 2V INDICATIONS: Wheezing and productive cough TECHNIQUE: 2 views of the chest were acquired. COMPARISON: [facility], , CHEST 2 VIEW, 04/11/2016, 16:46. FINDINGS: Surgical changes and devices: None. Lungs and pleura: Lungs are clear. No pleural effusions or pneumothorax. Mediastinum: Mediastinal contours are normal. Heart size is normal. Retrocardiac hiatal hernia. Bones and chest wall: No suspicious bony abnormalities. Soft tissues appear unremarkable. IMPRESSION: No acute cardiopulmonary disease process. Dictated by: Miya Alford MD, PhD on 06/18/2022 at 15:43 Approved by: Miya Alford MD, PhD on 06/18/2022 at 15:44
== END ==
PROVIDERS: PCP Internal Medicine; Referring Provider Student in an Organized Health Care Education/Training Program; Visit Provider Student in an Organized Health Care Education/Training Program
DX: R05.9 Cough, unspecified (principal); K44.9 Diaphragmatic hernia without obstruction or gangrene
CPT/HCPCS: 71046

== ENCOUNTER 2022-07-21 12:02 | Emergency (ER) | payer MEDICARE, SELFPAY ==
[2021-01-26 18:33] VITALS: BMI 25.4
[2022-07-21 12:05] VITALS: BP 168/69; PULSE 80; RESP 16; TEMP 36.4; O2SAT 97; BMI 25.0
--- NOTE | 2022-07-21 12:25 | DI.RAD.S_ITS ---
PROCEDURE: XR FINGER LT MIN 2V INDICATIONS: laceration, swelling and bruising TECHNIQUE: AP hand, 2 views of the ring finger(s) acquired. COMPARISON: None. FINDINGS: A bandage is noted over the tuft of the index finger of the left hand. 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 There is a lucency on the PIP joint of the index finger on the ulnar side which is probably an osteophyte but an avulsion fracture could also cause this appearance please correlate with point tenderness. Otherwise no fracture is identified. IMPRESSION: 1. Questionable fracture of the PIP joint of the index finger. Please correlate with point tenderness. 2. No other fracture. No radiopaque foreign body. Dictated by: Rm De La Rosa M.D. on 07/21/2022 at 12:58 Approved by: Rm De La Rosa M.D. on 07/21/2022 at 13:01
--- NOTE | 2022-07-21 12:26 | ED.WOUNDLAC ---
HPI - Wound/Laceration <Samia Newman, [facility] - Last Filed: 07/21/22 16:26> General Chief Complaint: Wound/Laceration Stated Complaint: injured lt hand in door Time Seen by Provider: 07/21/22 12:14 Mode of arrival: Ambulatory History of Present Illness HPI narrative: This is an 82-year-old female presents to the emergency department for a left 4th digit injury which occurred last night. She states that she stumbled because she was not paying attention to where she was going and fell forward into the blinds, states she put her left hand out to catch herself and hit the window and got tangled in the blinds. She has a laceration to the medial aspect of her left 4th digit over the PIP joint. Her last tetanus was in 2016. She states that it was cleaned but then covered up with a bandage and came in for evaluation. She complains of throbbing but states it is not that painful. She is not had any medication for pain and does not request any. She denies hitting her head, denies loss of consciousness, denies weakness, denies any sensation changes other than pain. She denies any other injuries as well. Patient tetanus UTD: Yes (Last tetanus 2015) Related Data Home Medications Medication Instructions Recorded Confirmed vitamins A,C,I-ndrh-ekousy 2,148 2 tab PO BID 12/12/21 06/18/22 mcg-113 mg-45 mg-17.4 mg tablet (PreserVision AREDS) Previous Rx's Medication Instructions Recorded ferrous sulfate 325 mg (65 mg 325 mg PO BID #60 tabs 01/28/21 iron) tablet (Iron (ferrous sulfate)) estradiol 0.01% (0.1 mg/gram) 1 g vaginal 2XW #42.5 grams 12/12/21 vaginal cream pantoprazole 40 mg tablet,delayed 40 mg PO DAILY #90 tabs 02/06/22 release rosuvastatin 10 mg tablet 10 mg PO DAILY #90 tabs 02/06/22 sertraline 100 mg tablet 100 mg PO DAILY #90 tabs 02/06/22 albuterol sulfate 90 mcg/actuation See Rx Instructions .Route 06/18/22 aerosol inhaler .COMPLEX #13.4 grams cephalexin 500 mg capsule 500 mg PO TID 7 days #21 caps 07/21/22 mupirocin 2 % topical ointment 1 applic topical DAILY #15 grams 07/21/22 Allergies Allergy/AdvReac Type Severity Reaction Status Date / Time ciprofloxacin [From Cipro] Allergy Mild Verified 07/21/22 12:24 peanut Allergy Unknown Verified 07/21/22 12:24 LACTOSE INTOLERANCE Allergy Mild CHEESE Uncoded 07/21/22 12:24 OK-NO MILK OR OTHERWISE MILK PRODUCTS & NO SOY MILK Review of Systems <ERIBERTO Dumont - Last Filed: 07/21/22 16:26> Review of Systems ROS Unobtainable: All systems reviewed & are unremarkable except as noted in HPI and below Patient History <ERIBERTO Dumont - Last Filed: 07/21/22 16:26> Medical History Acne (~1953) ADD (attention deficit disorder) Age-related osteoporosis without current pathological fracture Allergic rhinitis Alopecia (~1994) Anemia (~2015) Asthma, mild intermittent Chicken pox (~1942) Colon polyps (~1994) Depression, major, recurrent Diverticular disease (~2020) Do not resuscitate Dupuytren's contracture of left hand Family history of colon cancer in mother Family hx of colon cancer Herpes (~1979) Hiatal hernia (~2015) Mixed hyperlipidemia Recurrent UTI Trigger finger, left middle finger Urinary incontinence Surgical History Anesthesia History of cataract removal with insertion of prosthetic lens (~2016) History of hip replacement History of hysterectomy (~1979) History of repair of ACL Family History Father ALS (amyotrophic lateral sclerosis) Mother Colon cancer Sister Breast cancer Grandfather Parkinson's disease Grandmother History of heart disease Social History marital status: details: , 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 members: none education level: college occupational status: other 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 Smoking Status: Former smoker Tobacco: How many years used: 42 Smoking Status: Former smoker alcohol intake frequency: 3 or more drinks per day Alcohol type: wine Substance Use Type: does not use Exam <FIDENCIO DumontP - Last Filed: 07/21/22 16:26> Initial Vital Signs Initial Vital Signs: Vital Signs Temperature 97.6 F 07/21/22 12:05 Pulse Rate 80 07/21/22 12:05 Respiratory Rate 16 07/21/22 12:05 Blood Pressure 168/69 H 07/21/22 12:05 Pulse Oximetry 97 07/21/22 12:05 Oxygen Delivery Method Room Air 07/21/22 12:05 Extrem Left upper extremity: hand Details: normal capillary refill, neuromotor exam normal, neurosensory exam normal, tendon exam abnormal (Please see below), vascular exam, normal ROM of fingers and ecchymosis (, laceration over the medial aspect of the PIP joint approximately 2 cm, patient is not able to flex at this joint, she can extend, concern for tendon injury, joint fracture,) <Georges Bullard DO - Last Filed: 07/21/22 15:59> Initial Vital Signs Initial Vital Signs: Vital Signs Temperature 97.6 F 07/21/22 12:05 Pulse Rate 80 07/21/22 12:05 Respiratory Rate 16 07/21/22 12:05 Blood Pressure 168/69 H 07/21/22 12:05 Pulse Oximetry 97 07/21/22 12:05 Oxygen Delivery Method Room Air 07/21/22 12:05 Procedures <FIDENCIO DumontP - Last Filed: 07/21/22 16:26> Laceration Repair Laceration 1: Site: hand Side (If applicable): left Size (cm): 2 Description: irregular Depth: simple, single layer Local Anesthetic: lidocaine 2% Amount of anesthesia used (mL): 3 Pre-repair: wound explored, irrigated extensively and deep structures intact Skin layer closed with: nylon Skin layer suture size: 5-0 Number of sutures: 4 Technique: simple, interrupted Subcutaneous layer closed with: vicryl Subcutaneous layer suture size: 4-0 Number of sutures: 2 Technique: other (Vertical mattress suture through the nail bed and simple suture through the nail bed with Vicryl) Orthopedic Splinting/Casting Injury #1: Upper Extremity Injury Location: finger Upper Extremity Immobilizer: aluminum form splint (Applied over the bandage for protection) Course <FIDENCIO DumontP - Last Filed: 07/21/22 16:26> Orders Ordered: ED Orders 07/21/22 12:25 XR finger LT min 2V Stat Discontinued Medications Acetaminophen (Acetaminophen 325 Mg Tablet) 650 mg PO NOW ONE Stop: 07/21/22 14:03 Last Admin: 07/21/22 14:20 Dose: 650 mg Documented By: YANA Cephalexin HCl (Cephalexin 250 Mg Capsule) 500 mg PO NOW ONE Stop: 07/21/22 14:03 Last Admin: 07/21/22 14:21 Dose: 500 mg Documented By: YANA Lidocaine HCl (Lidocaine 2% Inj Mdv 20ml) 1 ml INJ INTRA-OP ONE Stop: 07/21/22 12:54 Last Admin: 07/21/22 14:24 Dose: Not Given Documented By: YANA Vital Signs Vital signs: Vital Signs - 8 hr 07/21/22 12:05 07/21/22 14:32 Temperature 97.6 F Pulse Rate 80 76 Respiratory Rate 16 98 H Blood Pressure 168/69 H 128/73 Pulse Oximetry 97 99 Oxygen Delivery Method Room Air Room Air <Georges Bullard DO - Last Filed: 07/21/22 15:59> Orders Ordered: ED Orders 07/21/22 12:25 XR finger LT min 2V Stat Discontinued Medications Acetaminophen (Acetaminophen 325 Mg Tablet) 650 mg PO NOW ONE Stop: 07/21/22 14:03 Last Admin: 07/21/22 14:20 Dose: 650 mg Documented By: YANA Cephalexin HCl (Cephalexin 250 Mg Capsule) 500 mg PO NOW ONE Stop: 07/21/22 14:03 Last Admin: 07/21/22 14:21 Dose: 500 mg Documented By: YANA Lidocaine HCl (Lidocaine 2% Inj Mdv 20ml) 1 ml INJ INTRA-OP ONE Stop: 07/21/22 12:54 Last Admin: 07/21/22 14:24 Dose: Not Given Documented By: YANA Vital Signs Vital signs: Vital Signs - 8 hr 07/21/22 12:05 07/21/22 14:32 Temperature 97.6 F Pulse Rate 80 76 Respiratory Rate 16 98 H Blood Pressure 168/69 H 128/73 Pulse Oximetry 97 99 Oxygen Delivery Method Room Air Room Air MDM - Wound/Laceration <ERIBERTO Dumont - Last Filed: 07/21/22 16:26> Imaging Data Extremity x-ray #1: Radiologist's Impression: PROCEDURE:? XR FINGER LT MIN 2V ? INDICATIONS:? laceration, swelling and bruising ? TECHNIQUE:? AP hand, 2 views of the ring finger(s) acquired.? ? COMPARISON:? None. ? FINDINGS:? ? A bandage is noted over the tuft of the index finger of the left hand.? The bones are demineralized with degenerative changes of the interphalangeal joints and 1st carpometacarpal joint consistent with osteoarthritis.? There is a lucency on the PIP joint of the index finger on the ulnar side which is probably an osteophyte but an avulsion fracture could also cause this appearance please correlate with point tenderness.? Otherwise no fracture is identified. ? IMPRESSION:? 1. Questionable fracture of the PIP joint of the index finger.? Please correlate with point tenderness. 2. No other fracture.? No radiopaque foreign body.? ? ? Dictated by: Rm De La Rosa M.D. on 07/21/2022 at 12:58 ? ? Approved by: Rm De La Rosa M.D. on 07/21/2022 at 13:01 ? MDM Narrative Medical decision making narrative: Chief Complaint: Finger injury Multiple etiologies for patient's symptoms considered including, but not limited to: Finger fracture, sprain/strain, ligamental injury tuft fracture, skin laceration, skin infection, open fracture I have independently reviewed the patient's vital signs and nursing notes as well as prior records if available. Pertinent Imaging reviewed: Left 4th finger x-ray has wrong word in radiology report however they are references the PIP joint of the 4th finger of the left hand. She has a lucency over the PIP joint and could be related to an avulsion fracture, she does have mild flexion of this finger and tendon exam is not fully abnormal. She has brisk cap refill, there is ecchymosis, edema, and range of motion is limited due to pain. Wound was thoroughly irrigated and soaked with normal saline, her last tetanus was in 2016. She was given Keflex and Tylenol for pain and wound prophylaxis if open fracture. Suture repair was completed, there 2 Vicryl sutures through the nail bed as her laceration runs just to the fingernail and she will possibly follow-up with orthopedics. She understands have her sutures removed in 7-10 days. A metal finger splint was applied for protection. She understands to change her dressings morning and night, mupirocin was prescribed as well as cephalexin for wound prophylaxis. She understands return for new or worsening condition, redness or swelling but it does not appear to have any infectious signs today. Social considerations that may affect disposition: none Questions are addressed and there is agreement with the plan and for follow-up. Patient is appropriate for outpatient management. Discharge Plan Departure Patient Disposition: Home Clinical Impression: Avulsion fracture Finger laceration Qualifiers: Encounter type: initial encounter Finger: ring finger Damage to nail status: with damage Foreign body presence: without foreign body Laterality: left Qualified Code(s): S61.315A - Laceration without foreign body of left ring finger with damage to nail, initial encounter Instructions: DI for Laceration Repair, DI for Avulsion Fracture Activity Restrictions/Additional Instructions: *You have been diagnosed with a finger laceration with an avulsion fracture of the distal joint of your 4th finger. Please schedule follow-up at [facility] in 1 week or longer. Wear the finger splint over a Band-Aid. Please have the sutures removed in 7-10 days. The white sutures through the fingernail are dissolvable. Okay to have orthopedics manage the wound care. Please cover with some topical antibiotic ointment, change your dressing, okay to shower as usual and wash your hands. Please ensure that this gets dry after cleansing. I hope you feel better soon, take Tylenol as needed for pain, since this has a cut over the fracture, antibiotics will help prevent infection. Your tetanus was given in 2015 so you do not need an updated 1 until 2025. *What to do: *Please continue to take your regular medications as directed. [x ] New medication prescriptions sent to your pharmacy: [[facility] ] [ ] New medication written as a paper prescription [ ] No new medications given *Please call and schedule follow up with your primary care provider in 2-3 days, at least for an update. Let them know you were seen in the Emergency Department for the above problem. We will electronically transmit a record of today's note if your PCP or specialist is in our system. *If you do not have a primary care provider please contact [phone] to establish care with one of the [facility] primary care providers. *Return to the Emergency Department for worsening symptoms, inability to keep liquids down, fever greater than 101F, chills, or other concerning symptom. Prescriptions: New cephalexin 500 mg capsule 500 mg PO TID 7 Days Qty: 21 0RF mupirocin 2 % ointment 1 applic topical DAILY Qty: 15 0RF No Action pantoprazole 40 mg tablet,delayed release (DR/EC) 40 mg PO DAILY Qty: 90 3RF sertraline 100 mg tablet 100 mg PO DAILY Qty: 90 3RF rosuvastatin 10 mg tablet 10 mg PO DAILY Qty: 90 3RF albuterol sulfate 90 mcg/actuation HFA aerosol inhaler See Rx Instructions .ROUTE .COMPLEX Qty: 13.4 0RF Dose Instruction: INHALE 1 PUFF BY MOUTH EVERY 4 TO 6 HOURS NEEDED FOR SHORTNESS OF BREATH OR WHEEZING Rx Instructions: INHALE 1 PUFF BY MOUTH EVERY 4 TO 6 HOURS NEEDED FOR SHORTNESS OF BREATH OR WHEEZING PreserVision AREDS 2,148 mcg-113 mg-45 mg-17.4mg tablet 2 tab PO BID Rx Instructions: administer with AM and PM meals estradiol 0.01 % (0.1 mg/gram) cream 1 g vaginal 2XW Qty: 42.5 3RF ferrous sulfate [Iron (ferrous sulfate)] 325 mg (65 mg iron) tablet 325 mg PO BID Qty: 60 0RF Referrals: [facility] [Provider Group] Robert Worthington MD [Primary Care Provider] - Stand Alone Forms: Patient Portal/API <Georges Bullard, DO - Last Filed: 07/21/22 15:59> Cosign ED Attending Cosignature Attestation: Dr Bullard Co-Sign Statement: I was available for consultation during this patient's emergency department visit. This chart is signed by myself for administrative purposes only. I did not have direct contact with this patient during this visit. They were seen independently by the APC.
[2022-07-21] MEDS: ACETAMINOPHEN 325 MG TABLET 650 MG PO (14:20)
[2022-07-21] MEDS: cephALEXin 250 MG CAPSULE 500 MG PO (14:21)
[2022-07-21] MEDS: LIDOCAINE 2% INJ SDV 5ML 5 ML (14:24)
--- NOTE | 2022-07-21 14:25 | PC.NURSE ---
Provider pulled med and administered xylocaine. RN unavailable, med scanned after provider performed procedure.
[2022-07-21 14:32] VITALS: BP 128/73; PULSE 76; RESP 98; O2SAT 99
== END 2022-07-21 14:36 | disposition home or self-care (01) ==
PROVIDERS: Emergency Provider Nurse Practitioner Critical Care Medicine; PCP Internal Medicine
DX: S61.315A Laceration without foreign body of left ring finger with damage to nail, initial encounter (principal); W22.8XXA Striking against or struck by other objects, initial encounter
CPT/HCPCS: 12001; 29130; 73140; 99283

== ENCOUNTER → 2022-10-04 11:36 | Outpatient (CLI) | payer MEDICARE, SELFPAY ==
[2021-01-26 18:33] VITALS: BMI 25.4
--- NOTE | 2022-10-04 | DI.MG.S_ITS ---
BILATERAL DIGITAL SCREENING MAMMOGRAM 3D/2D WITH CAD: 10/04/2022 CLINICAL: Routine screening. Family history of breast cancer. Comparison is made to exams dated: 10/02/2021 mammogram, 08/22/2020 mammogram, and 10/06/2018 mammogram - [facility]. There are scattered areas of fibroglandular density in both breasts (category b / 25%-50% glandular tissue). Current study was also evaluated with a Computer Aided Detection (CAD) system. There are benign calcifications in both breasts. There also are benign vascular calcifications in both breasts. No significant masses, calcifications, or other findings are seen in either breast. There has been no significant interval change. IMPRESSION: BENIGN There is no mammographic evidence of malignancy. A 1 year screening mammogram is recommended. Based on the Tyrer Cuzick model (a risk assessment model) the patient's lifetime risk is 0.5% and her 10 year risk is 0.0%. According to the ACR, ACS, and NCCN guidelines, an annual breast MRI exam along with mammogram is recommended if the patient's lifetime risk is 20% or greater. This exam was interpreted at Station ID: [id number]. NOTE: For mammograms, a report in lay terms will be sent to the patient. Approximately 15% of breast malignancies will not be visualized mammographically. In the management of a palpable breast mass, a negative mammogram must not discourage biopsy of a clinically suspicious lesion. Electronically Signed By: Osmani ferrara/anna:10/04/2022 15:34:53 letter sent: Normal Exam ACR BI-RADS Category 2: Benign Finding(s) [id number]
== END ==
PROVIDERS: PCP Internal Medicine; Referring Provider Internal Medicine; Visit Provider Internal Medicine
DX: Z12.31 Encounter for screening mammogram for malignant neoplasm of breast (principal); Z80.3 Family history of malignant neoplasm of breast
CPT/HCPCS: 77063; 77067

== ENCOUNTER → 2023-06-16 11:52 | Outpatient (CLI) | payer MEDICARE, SELFPAY ==
[2021-01-26 18:33] VITALS: BMI 25.4
[2023-06-16 13:03] LABS: Alanine Aminotransferase 17 IU/L (<35); Albumin 4.4 g/dL (3.5-5.0); Albumin Globulin Ratio 1.3 (1.0-2.8); Alkaline Phosphatase 77 U/L (38-126); Aspartate Aminotransferase 30 IU/L (14-36); Bilirubin Total 0.6 mg/dL (0.2-1.3); Blood Urea Nitrogen 17 mg/dL (7-17); Calcium 9.4 mg/dL (8.4-10.2); Carbon Dioxide 30 mmol/L (22-32); Chloride 102 mmol/L (98-107); Cholesterol 221 mg/dL (140-199); Estimated Glomerular Filt Rate > 60 mL/min (>60); Globulin 3.3 g/dL (1.7-4.1); Glucose 95 mg/dL (80-110); HDL Cholesterol 88 mg/dL (40-60); HEMOLYSIS < 15 (0-50); LDL Cholesterol Calculated 113 mg/dL (<100); Potassium 4.5 mmol/L (3.4-5.1); Sodium 137 mmol/L (137-145); Total Protein 7.7 g/dL (6.3-8.2); Triglycerides 101 mg/dL (35-150)
== END ==
PROVIDERS: PCP Internal Medicine; Referring Provider Internal Medicine; Visit Provider Internal Medicine
DX: E78.2 Mixed hyperlipidemia (principal); M81.0 Age-related osteoporosis without current pathological fracture
CPT/HCPCS: 36415; 80053; 80061

== ENCOUNTER → 2023-09-29 14:36 | Outpatient (CLI) | payer MEDICARE, SELFPAY ==
[2021-01-26 18:33] VITALS: BMI 25.4
[2023-09-29 15:32] LABS: Add Manual Diff / Slide Review NO; Basophils Absolute Auto 100 /uL (0-100); Basophils Percent Auto 1.1 % (0-2); Eosinophils Absolute Auto 200 /uL (0-450); Eosinophils Percent Auto 2.6 % (2-4); Hematocrit 30.8 % (36-46); Hemoglobin 9.9 g/dL (12.0-16.0); Lymphocytes Absolute Auto 700 /uL (1100-4500); Lymphocytes Percent Auto 9.9 % (25-40); Mean Corpuscular HGB Conc 32.1 % (30-36); Mean Corpuscular Volume 87.2 fL (80-100); Monocytes Absolute Auto 500 /uL (0-900); Monocytes Percent Auto 7.2 % (3-14); Neutrophils Absolute Auto 5700 /uL (1500-7000); Neutrophils Percent Auto 79.2 % (50-75); Platelet Count 291 X10^3/uL (150-400); Red Blood Cell Count 3.53 X10^6/uL (4.0-5.2); Red Cell Distribution Width 17.9 % (11.6-14.8); White Blood Cell Count 7.3 X10^3/uL (4.5-11.0)
[2023-09-29 15:53] LABS: HEMOLYSIS < 15 (0-50); Iron 36 ug/dL (37-170)
[2023-09-29 15:55] LABS: Alanine Aminotransferase 14 IU/L (<35); Albumin 4.2 g/dL (3.5-5.0); Albumin Globulin Ratio 1.4 (1.0-2.8); Alkaline Phosphatase 71 U/L (38-126); Aspartate Aminotransferase 27 IU/L (14-36); BUN Creatinine Ratio 19.1 (6-22); Bilirubin Total 0.4 mg/dL (0.2-1.3); Blood Urea Nitrogen 21 mg/dL (7-17); Calcium 9.3 mg/dL (8.4-10.2); Carbon Dioxide 26 mmol/L (22-32); Chloride 106 mmol/L (98-107); Estimated Glomerular Filt Rate 50 mL/min (>60); Glucose 105 mg/dL (80-110); HEMOLYSIS < 15 (0-50); Potassium 4.9 mmol/L (3.4-5.1); Sodium 138 mmol/L (137-145); Total Protein 7.2 g/dL (6.3-8.2)
[2023-09-29 16:00] LABS: Transferrin 329 mg/dL (206-381)
[2023-09-29 16:05] LABS: Percent Iron Saturation 9 % (15-50); Total Iron Binding Capacity 390 ug/dL (265-497)
[2023-09-29 16:29] LABS: Ferritin 24 ng/mL (11-264)
== END ==
PROVIDERS: PCP Internal Medicine; Referring Provider Internal Medicine; Visit Provider Internal Medicine
DX: D50.9 Iron deficiency anemia, unspecified (principal); R06.02 Shortness of breath
CPT/HCPCS: 36415; 80053; 82728; 83540; 83550; 85025

== ENCOUNTER 2023-10-10 11:04 | Emergency (ER) | payer MEDICARE, SELFPAY ==
[2021-01-26 18:33] VITALS: BMI 25.4
[2023-10-10] VITALS (18 sets, daily range): BP systolic 128–179; BP diastolic 61–74; PULSE 72–111; RESP 19–29; TEMP 36.6; O2SAT 94–100
--- NOTE | 2023-10-10 11:17 | ED.RECABL ---
HPI - Recheck/Abnormal Lab/Rx <Hollis Chirinos PA-C - Last Filed: 10/10/23 15:15> General Chief Complaint: Weakness Stated Complaint: anemia Time Seen by Provider: 10/10/23 11:09 History of Present Illness HPI narrative: This is a 83-year-old female presents to the emergency department due to increased fatigue and shortness of breath with activity over the last year. She says it is recently gotten worse causing her to come in. She also saw her primary care provider about 2 weeks ago for similar symptoms where she was lab work drawn. She denies any chest pain. Denies any abdominal pain, reports a few episodes of nausea, states that she was primarily concerned due to the increased shortness of breath with exertion. Denies any fevers, URI symptoms, or any other concerning signs or symptoms. She does report darker stools but states that she has been taking iron supplements to avoid anemia. Related Data Home Medications Medication Instructions Recorded Confirmed vitamins A,C,Q-kbhw-axxjxf 2,148 2 tab PO BID 12/12/21 09/29/23 mcg-113 mg-45 mg-17.4 mg tablet (PreserVision AREDS) Previous Rx's Medication Instructions Recorded ferrous sulfate 325 mg (65 mg 325 mg PO BID #60 tabs 01/28/21 iron) tablet (Iron (ferrous sulfate)) estradiol 0.01% (0.1 mg/gram) 1 g vaginal 2XW #42.5 grams 12/12/21 vaginal cream albuterol sulfate 90 mcg/actuation See Rx Instructions .Route 06/18/22 aerosol inhaler .COMPLEX #13.4 grams pantoprazole 40 mg tablet,delayed 40 mg PO DAILY #90 tabs 02/11/23 release rosuvastatin 10 mg tablet 10 mg PO DAILY #90 tabs 06/30/23 sertraline 100 mg tablet 100 mg PO DAILY #90 tabs 06/30/23 Allergies Allergy/AdvReac Type Severity Reaction Status Date / Time peanut Allergy Severe Anaphylaxis Verified 09/29/23 12:40 ciprofloxacin [From Cipro] Allergy Mild Verified 09/29/23 12:40 lactose Allergy Mild CHEESE Verified 10/10/23 12:11 OK-NO MILK OR OTHERWISE MILK PRODUCTS & NO SOY MILK Review of Systems <Hollis Chirinos PA-C - Last Filed: 10/10/23 15:15> Review of Systems Narrative: GENERAL: Reports fatigue, Denies chills, , malaise, fever, sweats. HEENT: Denies sinus pain, ear pain, sore throat, difficulty swallowing, dizziness. RESPIRATORY: Reports shortness of breath with exertion, Denies dyspnea at rest, cough, wheezing, hemoptysis, sputum. CARDIOVASCULAR: Denies chest pain, palpitations, orthopnea, edema, GASTROINTESTINAL: Denies nausea, vomiting, abdominal pain, diarrhea, constipation, melena. : Denies dysuria, frequency, incontinence, hematuria, urinary retention. MUSCULOSKELETAL: denies weakness, joint pain, or bony pain SKIN: Denies rash, skin lesions, or other NEUROLOGIC: Denies weakness, headache, numbness, change in speech, confusion, seizures, incoordination. PSYCHIATRIC: No concerning psychosocial issues. 12 point review of systems is negative except for those stated above Patient History <Hollis Chirinos PA-C - Last Filed: 10/10/23 15:15> Medical History (Updated 10/10/23 @ 14:30 by Hollis Chirinos PA-C) Iron deficiency anemia GERD without esophagitis Shortness of breath Gait instability Dupuytren's contracture of left hand Trigger finger, left middle finger Family history of colon cancer in mother ADD (attention deficit disorder) Depression, major, recurrent Do not resuscitate Age-related osteoporosis without current pathological fracture Mixed hyperlipidemia Recurrent UTI Urinary incontinence Allergic rhinitis Asthma, mild intermittent Alopecia (~1994) Acne (~1953) Chicken pox (~1942) Anemia (~2015) Herpes (~1979) Diverticular disease (~2020) Colon polyps (~1994) Family hx of colon cancer Hiatal hernia (~2015) Surgical History Anesthesia History of hip replacement History of cataract removal with insertion of prosthetic lens (~2016) History of hysterectomy (~1979) History of repair of ACL Family History Father ALS (amyotrophic lateral sclerosis) Mother Colon cancer Sister Breast cancer Grandfather Parkinson's disease Grandmother History of heart disease Social History marital status: details: , 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 HEAD: Atraumatic. Normocephalic. EYES: Pupils equal round and reactive. Extraocular motions intact. No scleral icterus. No injection or drainage. ENT: Nose without bleeding, purulent drainage. Throat without erythema, tonsillar hypertrophy or exudate. Airway patent. NECK: Trachea midline. Non tender EXTREMITIES: No edema or joint tenderness. NEURO: AOx3. SKIN: No rash or erythema of visible areas CARDIOVASCULAR: Regular rate and rhythm without murmurs, gallops, or rubs. RESPIRATORY: Clear to auscultation. Breath sounds equal bilaterally. No wheezes, rales, or rhonchi. GASTROINTESTINAL: Abdomen soft, no significant tenderness to palpation , nondistended. BACK: Nontender without deformity or crepitance. No flank tenderness. Rectal: Guaiac positive Initial Vital Signs Initial Vital Signs: Vital Signs Pulse Rate 91 H 10/10/23 11:10 Pulse Oximetry 99 10/10/23 11:10 <Kimberly Escalante DO - Last Filed: 10/11/23 10:11> Initial Vital Signs Initial Vital Signs: Vital Signs Pulse Rate 91 H 10/10/23 11:10 Pulse Oximetry 99 10/10/23 11:10 Course <Hollis Chirinos PA-C - Last Filed: 10/10/23 15:15> Orders Ordered: Discontinued Medications Pantoprazole Sodium (Pantoprazole 40 Mg Vial) 40 mg IV NOW ONE Stop: 10/10/23 12:09 Last Admin: 10/10/23 12:23 Dose: 40 mg Documented By: VINOD Vital Signs Vital signs: Vital Signs - 8 hr 10/10/23 11:10 10/10/23 11:20 10/10/23 11:30 Temperature 98 F Pulse Rate 91 H 85 82 Respiratory Rate 20 Blood Pressure 157/66 H Pulse Oximetry 99 98 97 Oxygen Delivery Method Room Air 10/10/23 11:56 10/10/23 11:56 10/10/23 12:00 Temperature Pulse Rate 78 85 Respiratory Rate 24 Blood Pressure 128/61 Pulse Oximetry 98 98 Oxygen Delivery Method 10/10/23 12:05 10/10/23 12:05 10/10/23 12:30 Temperature Pulse Rate 80 81 Respiratory Rate 22 Blood Pressure 144/68 H Pulse Oximetry 99 100 Oxygen Delivery Method 10/10/23 12:44 10/10/23 12:44 10/10/23 12:53 Temperature Pulse Rate 81 Respiratory Rate Blood Pressure 155/65 H 144/72 H Pulse Oximetry 98 Oxygen Delivery Method 10/10/23 12:53 10/10/23 13:06 10/10/23 13:30 Temperature Pulse Rate 77 83 79 Respiratory Rate 20 24 Blood Pressure Pulse Oximetry 100 97 99 Oxygen Delivery Method 10/10/23 14:00 10/10/23 14:18 10/10/23 14:19 Temperature Pulse Rate 80 72 Respiratory Rate 29 H Blood Pressure 179/74 H Pulse Oximetry 99 99 Oxygen Delivery Method 10/10/23 14:20 10/10/23 14:28 10/10/23 14:28 Temperature Pulse Rate 111 H Respiratory Rate Blood Pressure 154/70 H 158/73 H Pulse Oximetry Oxygen Delivery Method 10/10/23 14:30 10/10/23 14:30 10/10/23 14:35 Temperature Pulse Rate 79 Respiratory Rate 19 Blood Pressure 154/67 H Pulse Oximetry 94 Oxygen Delivery Method Trach Collar Room Air <Kimberly Escalante, - Last Filed: 10/11/23 10:11> Orders Ordered: Discontinued Medications Pantoprazole Sodium (Pantoprazole 40 Mg Vial) 40 mg IV NOW ONE Stop: 10/10/23 12:09 Last Admin: 10/10/23 12:23 Dose: 40 mg Documented By: MPO Vital Signs Vital signs: Vital Signs - 8 hr 10/10/23 11:10 10/10/23 11:20 10/10/23 11:30 Temperature 98 F Pulse Rate 91 H 85 82 Respiratory Rate 20 Blood Pressure 157/66 H Pulse Oximetry 99 98 97 Oxygen Delivery Method Room Air 10/10/23 11:56 10/10/23 11:56 10/10/23 12:00 Temperature Pulse Rate 78 85 Respiratory Rate 24 Blood Pressure 128/61 Pulse Oximetry 98 98 Oxygen Delivery Method 10/10/23 12:05 10/10/23 12:05 10/10/23 12:30 Temperature Pulse Rate 80 81 Respiratory Rate 22 Blood Pressure 144/68 H Pulse Oximetry 99 100 Oxygen Delivery Method 10/10/23 12:44 10/10/23 12:44 10/10/23 12:53 Temperature Pulse Rate 81 Respiratory Rate Blood Pressure 155/65 H 144/72 H Pulse Oximetry 98 Oxygen Delivery Method 10/10/23 12:53 10/10/23 13:06 10/10/23 13:30 Temperature Pulse Rate 77 83 79 Respiratory Rate 20 24 Blood Pressure Pulse Oximetry 100 97 99 Oxygen Delivery Method 10/10/23 14:00 10/10/23 14:18 10/10/23 14:19 Temperature Pulse Rate 80 72 Respiratory Rate 29 H Blood Pressure 179/74 H Pulse Oximetry 99 99 Oxygen Delivery Method 10/10/23 14:20 10/10/23 14:28 10/10/23 14:28 Temperature Pulse Rate 111 H Respiratory Rate Blood Pressure 154/70 H 158/73 H Pulse Oximetry Oxygen Delivery Method 10/10/23 14:30 10/10/23 14:30 10/10/23 14:35 Temperature Pulse Rate 79 Respiratory Rate 19 Blood Pressure 154/67 H Pulse Oximetry 94 Oxygen Delivery Method Trach Collar Room Air MDM - Recheck/Abnormal Lab/Rx <Hollis Chirinos PA-C - Last Filed: 10/10/23 15:15> Lab Data 10/10/23 11:20 10/10/23 11:20 Labs: Lab Results 10/10/23 Range/Units 11:20 WBC 6.1 (4.5-11.0) X10^3/uL RBC 3.05 L (4.0-5.2) X10^6/uL Hgb 8.6 L (12.0-16.0) g/dL Hct 26.7 L (36-46) % MCV 87.4 (80-100) fL MCH 28.3 (26-34) PG MCHC 32.4 (30-36) % RDW 17.3 H (11.6-14.8) % Plt Count 190 (150-400) X10^3/uL Neut % (Auto) 73.9 (50-75) % Lymph % (Auto) 14.7 L (25-40) % [place] % (Auto) 8.0 (3-14) % Eos % (Auto) 2.7 (2-4) % Baso % (Auto) 0.7 (0-2) % Neut # (Auto) 4500 (7566-7863) /uL Lymph # (Auto) 900 L (5795-1632) /uL [place] # (Auto) 500 (0-900) /uL Eos # (Auto) 200 (0-450) /uL Baso # (Auto) 0 (0-100) /uL Sodium 136 L (137-145) mmol/L Potassium 4.1 (3.4-5.1) mmol/L Chloride 106 (98-107) mmol/L Carbon Dioxide 25 (22-32) mmol/L BUN 27 H (7-17) mg/dL Creatinine 0.93 (0.52-1.04) mg/dL Estimated GFR > 60 (>60) mL/min BUN/Creatinine Ratio 29.0 H (6-22) Glucose 103 (80-110) mg/dL Calcium 8.9 (8.4-10.2) mg/dL Total Bilirubin 0.4 (0.2-1.3) mg/dL AST 30 (14-36) IU/L ALT 15 (<35) IU/L Alkaline Phosphatase 79 (38-126) U/L Total Creatine Kinase 44 (30-135) U/L Troponin I < 0.012 (0.01-0.034) ng/mL NT-Pro-B Natriuret Pep 240 (<450) pg/mL Total Protein 6.8 (6.3-8.2) g/dL Albumin 4.0 (3.5-5.0) g/dL Globulin 2.8 (1.7-4.1) g/dL Albumin/Globulin Ratio 1.4 (1.0-2.8) Point of Care Testing Stool Occult Blood Positive Imaging Data Chest x-ray: Radiologist's Impression: [address] [address] XRay Report Signed Patient: Joan Green MR#: [id number] : 1940 Acct:[id number] Age/Sex: 83 / F Date of Service: 10/10/23 Loc: ED Accession Number: [id number] Procedure: XR chest 2V Ordering Provider: Hollis Chirinos P.A-C PROCEDURE: XR CHEST 2V INDICATIONS: SOB TECHNIQUE: 2 views of the chest were acquired. COMPARISON: None. FINDINGS: Surgical changes and devices: None. Lungs and pleura: Lungs are clear. No pleural effusions or pneumothorax. Mediastinum: Mediastinal contours are normal. Heart size is normal. Bones and chest wall: No suspicious bony abnormalities. Soft tissues appear unremarkable. IMPRESSION: No acute cardiopulmonary abnormality is seen. Dictated by: Niraj Saldaña M.D. on 10/10/2023 at 12:29 Approved by: Niraj Saldaña M.D. on 10/10/2023 at 12:33 CT scan - abdomen/pelvis: Radiologist's Impression: [place] [address] CT Scan Report Signed Patient: Joan Green MR#: [id number] : 1940 Acct:[id number] Age/Sex: 83 / F Date of Service: 10/10/23 Loc: ED Accession Number: [id number] Procedure: CT angio Abd/Pel GI Bleed Ordering Provider: Hollis Chirinos P.A-C PROCEDURE: CT ANGIO ABD/PEL GI BLEED INDICATIONS: r/o GI bleed TECHNIQUE: After the administration of intravenous contrast, 2.5 mm thick sections acquired from the diaphragm to the symphysis. 10 mm maximum-intensity projection (MIP) reformats were then acquired. For radiation dose reduction, the following was used: automated exposure control. COMPARISON: None. FINDINGS: Image Quality: Diagnostic. Abdominal aorta: Normal caliber. No dissection. No significant stenotic disease. Mesenteric arteries: Patent without hemodynamically significant stenosis. Renal arteries: Patent without hemodynamically significant stenosis. Miscellaneous: No acute bowel extravasation of contrast during the study. OTHER: Lower Chest: Moderately large hiatal hernia. No basilar infiltrates. Liver: No solid mass. Gallbladder: No radiopaque gallstones or wall thickening. Biliary ducts: No biliary dilation. Pancreas: No ductal dilation. Spleen: Size is within normal limits. Adrenal Glands: No adrenal nodules. Kidneys and Ureters: No hydronephrosis. No solid mass. No complex renal cystic lesion which requires follow up. Stomach and Bowel: Normal colonic caliber, without significant wall thickening. Extensive sigmoid diverticulosis without evidence of acute diverticulitis. There is a segment of ascending colon which apparently has diffuse wall thickening and luminal narrowing. Consider possible colonic malignancy. Peritoneum: No abnormal intraperitoneal fluid. No free air. Ventral Wall: No hernia. Abdominal Nodes: No retroperitoneal or mesenteric adenopathy by size criteria. Vessels: Aorta and inferior vena cava are normal in size. PELVIS: Pelvic Organs: Unremarkable. Bladder: Unremarkable. Pelvic Nodes: No enlarged lymph nodes. Miscellaneous: No inguinal hernias are seen. Bones: No aggressive osseous abnormality. Lumbar degenerative change with canal stenosis at L4-L5 and L3-L4. Bilateral total hip arthroplasties IMPRESSION: 1. There is no acute hemorrhage identified over the course of this particular study. 2. Extensive sigmoid diverticulosis without evidence of acute diverticulitis. 3. Question possible right colonic malignancy causing wall thickening and narrowing. 4. Moderately large hiatal hernia. 5. No evidence of metastatic disease. Comment: Recommend direct visualization of the right colon utilizing colonoscopy when the patient is stable if this patient has not already undergone recent colonoscopy. Dictated by: Niraj Saldaña M.D. on 10/10/2023 at 13:44 Approved by: Niraj Saldaña M.D. on 10/10/2023 at 13:51 MDM Narrative Medical decision making narrative: ED course: This is a 83-year-old female presents to the emergency department due to acute on chronic fatigue as well as shortness of breath with the exertion patient states that this has been affecting her for the last year. Initial lab work was drawn which showed an anemia of a hemoglobin of 8.6. Hemoglobin was noted to be 9.9 approximately 2 weeks ago. CMP showed mild elevation in BUN of 27 as well as a BUN creatinine ratio of 29.0. BNP was within normal limits as well as EKG and troponin. Stool guaiac was positive. CTA of the abdomen and pelvis with the GI protocol was ordered which showed no acute bleeding. Did show possible malignancy that would benefit from colonoscopy to the right colon. Patient may have a slow internal bleed that will benefit from endoscopy. Discussed case with the patient who says that she was preferred to have this done outpatient. She was not having any significant acute viral abnormalities or other concerning symptoms. Patient will be discharged for outpatient follow up with Dr. Azevedo for endoscopy. Spoke with Dr. Azevedo to inform of the patient and he was agreeable with the plan. CC: Fatigue Complicating co-morbidities: As below Data collected from: Previous notes Medical records reviewed: Patient was last seen here in the emergency department about a year ago due to an avulsion finger injury. History of osteoporosis, anemia, asthma, depression, diverticular disease,. Patient has had lab work done about 2 weeks ago on 09/29/2023 which showed a hemoglobin of 9.9. Previous hemoglobin was 12.32 years prior to that. Per her primary care provider know on 09/29/2023 she has been taking iron tablets prevent anemia. Bowel 5 years ago she was transfused for 2 units of blood, she states that she feels similar to how she felt before when she was transfused. Patient was hospitalized in 2020 for upper GI bleeding. Taking pantoprazole. EGD and colonoscopy were done which were unremarkable other than diverticulosis. Patient was hospitalized in 2020 for black diarrhea. History of hiatal hernia. Admitted for GI bleed. Was transfused 1 unit of PRBC. EGD was unremarkable. Colonoscopy showed diverticulosis. Colonoscopy showed no active bleeding. Discharged Differential considered, but not limited to: Upper GI bleed, lower GI bleed Exam documented above, pertinent findings include: Positive stool guaiac Lab Test results independently reviewed as above. Pertinent findings: As above Imaging studies independently reviewed: As above Scores Used: None MIPS Elements: None Consultations: None Treatments: 40 mg of IV pantoprazole Re-evaluations: None Discussion: Discussed plan with the patient was comfortable with the plan Diagnosis: GI bleed Disposition: see below, along with detailed discharge instructions that have been reviewed with patient as well as indications for ED re-evaluation and additional outpatient follow up <Kimberly Escalante DO - Last Filed: 10/11/23 10:11> Lab Data Labs: Lab Results 10/10/23 Range/Units 11:20 WBC 6.1 (4.5-11.0) X10^3/uL RBC 3.05 L (4.0-5.2) X10^6/uL Hgb 8.6 L (12.0-16.0) g/dL Hct 26.7 L (36-46) % MCV 87.4 (80-100) fL MCH 28.3 (26-34) PG MCHC 32.4 (30-36) % RDW 17.3 H (11.6-14.8) % Plt Count 190 (150-400) X10^3/uL Neut % (Auto) 73.9 (50-75) % Lymph % (Auto) 14.7 L (25-40) % [place] % (Auto) 8.0 (3-14) % Eos % (Auto) 2.7 (2-4) % Baso % (Auto) 0.7 (0-2) % Neut # (Auto) 4500 (6843-3936) /uL Lymph # (Auto) 900 L (2953-2124) /uL [place] # (Auto) 500 (0-900) /uL Eos # (Auto) 200 (0-450) /uL Baso # (Auto) 0 (0-100) /uL Sodium 136 L (137-145) mmol/L Potassium 4.1 (3.4-5.1) mmol/L Chloride 106 (98-107) mmol/L Carbon Dioxide 25 (22-32) mmol/L BUN 27 H (7-17) mg/dL Creatinine 0.93 (0.52-1.04) mg/dL Estimated GFR > 60 (>60) mL/min BUN/Creatinine Ratio 29.0 H (6-22) Glucose 103 (80-110) mg/dL Calcium 8.9 (8.4-10.2) mg/dL Total Bilirubin 0.4 (0.2-1.3) mg/dL AST 30 (14-36) IU/L ALT 15 (<35) IU/L Alkaline Phosphatase 79 (38-126) U/L Total Creatine Kinase 44 (30-135) U/L Troponin I < 0.012 (0.01-0.034) ng/mL NT-Pro-B Natriuret Pep 240 (<450) pg/mL Total Protein 6.8 (6.3-8.2) g/dL Albumin 4.0 (3.5-5.0) g/dL Globulin 2.8 (1.7-4.1) g/dL Albumin/Globulin Ratio 1.4 (1.0-2.8) Point of Care Testing Stool Occult Blood Positive ECG Data Attestation: I personally reviewed and interpreted this ECG as follows: Interpretation: Sinus rhythm rate of 77 SD 156 QRS 80 QTC 448, no acute ST elevation depression noted. Discharge Plan Departure Patient Disposition: Home Clinical Impression: GI bleed Activity Restrictions/Additional Instructions: Thank you for coming to the [facility] Emergency Department today. As we discussed you likely have a GI bleed that would benefit from a colonoscopy. Please follow up with Dr. Azevedo to arrange this. Please call his office to start the process. Please continue taking the pantoprazole you have been prescribed. Please return to the emergency department if you develop any significant new or worsening symptoms, significant abdominal pain, fevers, or any other concerning signs or symptoms. I hope you feel better soon. Please follow up with your primary care provider within a week if your symptoms continue. If you do not have a primary care provider please contact the [facility] Resource line at [phone]. They will ask some questions about your medical history and help you get set up with a provider in the community. Prescriptions: No Action albuterol sulfate 90 mcg/actuation HFA aerosol inhaler See Rx Instructions .ROUTE .COMPLEX Qty: 13.4 0RF Dose Instruction: INHALE 1 PUFF BY MOUTH EVERY 4 TO 6 HOURS NEEDED FOR SHORTNESS OF BREATH OR WHEEZING Rx Instructions: INHALE 1 PUFF BY MOUTH EVERY 4 TO 6 HOURS NEEDED FOR SHORTNESS OF BREATH OR WHEEZING pantoprazole 40 mg tablet,delayed release (DR/EC) 40 mg PO DAILY Qty: 90 3RF sertraline 100 mg tablet 100 mg PO DAILY Qty: 90 3RF rosuvastatin 10 mg tablet 10 mg PO DAILY Qty: 90 3RF PreserVision AREDS 2,148 mcg-113 mg-45 mg-17.4mg tablet 2 tab PO BID Rx Instructions: administer with AM and PM meals estradiol 0.01 % (0.1 mg/gram) cream 1 g vaginal 2XW Qty: 42.5 3RF ferrous sulfate [Iron (ferrous sulfate)] 325 mg (65 mg iron) tablet 325 mg PO BID Qty: 60 0RF Referrals: Robert Worthington MD [Primary Care Provider] - Ranjith Azevedo MD [Physician] - (f/u possible GI bleed and possible R sided malignancy ) Stand Alone Forms: Patient Portal/API ED Sign-out <Kimberly Escalante DO - Last Filed: 10/11/23 10:11> Cosign ED Attending [place] Attestation: I was immediately available in the department for consultation. Case was discussed, discussed observation based on labs vital signs patient's preference to return home she was discharged home but follow up is been incorporated with General surgery for scope.
--- NOTE | 2023-10-10 11:29 | DI.RAD.S_ITS ---
PROCEDURE: XR CHEST 2V INDICATIONS: SOB TECHNIQUE: 2 views of the chest were acquired. COMPARISON: None. FINDINGS: Surgical changes and devices: None. Lungs and pleura: Lungs are clear. No pleural effusions or pneumothorax. Mediastinum: Mediastinal contours are normal. Heart size is normal. Bones and chest wall: No suspicious bony abnormalities. Soft tissues appear unremarkable. IMPRESSION: No acute cardiopulmonary abnormality is seen. Dictated by: Niraj Saldaña M.D. on 10/10/2023 at 12:29 Approved by: Niraj Saldaña M.D. on 10/10/2023 at 12:33
[2023-10-10 11:52] LABS: Add Manual Diff / Slide Review NO; Basophils Absolute Auto 0 /uL (0-100); Basophils Percent Auto 0.7 % (0-2); Eosinophils Absolute Auto 200 /uL (0-450); Eosinophils Percent Auto 2.7 % (2-4); Hematocrit 26.7 % (36-46); Hemoglobin 8.6 g/dL (12.0-16.0); Lymphocytes Absolute Auto 900 /uL (1100-4500); Lymphocytes Percent Auto 14.7 % (25-40); Mean Corpuscular HGB Conc 32.4 % (30-36); Mean Corpuscular Hemoglobin 28.3 PG (26-34); Mean Corpuscular Volume 87.4 fL (80-100); Monocytes Absolute Auto 500 /uL (0-900); Neutrophils Absolute Auto 4500 /uL (1500-7000); Neutrophils Percent Auto 73.9 % (50-75); Platelet Count 190 X10^3/uL (150-400); Red Blood Cell Count 3.05 X10^6/uL (4.0-5.2); Red Cell Distribution Width 17.3 % (11.6-14.8); White Blood Cell Count 6.1 X10^3/uL (4.5-11.0)
--- NOTE | 2023-10-10 11:52 | EKG_ITS ---
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
[2023-10-10 11:57] LABS: Alanine Aminotransferase 15 IU/L (<35); Albumin Globulin Ratio 1.4 (1.0-2.8); Alkaline Phosphatase 79 U/L (38-126); Aspartate Aminotransferase 30 IU/L (14-36); Bilirubin Total 0.4 mg/dL (0.2-1.3); Blood Urea Nitrogen 27 mg/dL (7-17); Calcium 8.9 mg/dL (8.4-10.2); Carbon Dioxide 25 mmol/L (22-32); Chloride 106 mmol/L (98-107); Creatine Kinase 44 U/L (30-135); Estimated Glomerular Filt Rate > 60 mL/min (>60); Globulin 2.8 g/dL (1.7-4.1); Glucose 103 mg/dL (80-110); HEMOLYSIS < 15 (0-50); Potassium 4.1 mmol/L (3.4-5.1); Sodium 136 mmol/L (137-145); Total Protein 6.8 g/dL (6.3-8.2)
[2023-10-10 12:06] LABS: NT-proBNP (BNP-Adult 18+) 240 pg/mL (<450)
[2023-10-10 12:09] LABS: Troponin I < 0.012 ng/mL (0.01-0.034)
[2023-10-10] MEDS: PANTOPRAZOLE 40 MG VIAL IV (12:23)
--- NOTE | 2023-10-10 12:30 | DI.CT.S_ITS ---
PROCEDURE: CT ANGIO ABD/PEL GI BLEED INDICATIONS: r/o GI bleed TECHNIQUE: After the administration of intravenous contrast, 2.5 mm thick sections acquired from the diaphragm to the symphysis. 10 mm maximum-intensity projection (MIP) reformats were then acquired. For radiation dose reduction, the following was used: automated exposure control. COMPARISON: None. FINDINGS: Image Quality: Diagnostic. Abdominal aorta: Normal caliber. No dissection. No significant stenotic disease. Mesenteric arteries: Patent without hemodynamically significant stenosis. Renal arteries: Patent without hemodynamically significant stenosis. Miscellaneous: No acute bowel extravasation of contrast during the study. OTHER: Lower Chest: Moderately large hiatal hernia. No basilar infiltrates. Liver: No solid mass. Gallbladder: No radiopaque gallstones or wall thickening. Biliary ducts: No biliary dilation. Pancreas: No ductal dilation. Spleen: Size is within normal limits. Adrenal Glands: No adrenal nodules. Kidneys and Ureters: No hydronephrosis. No solid mass. No complex renal cystic lesion which requires follow up. Stomach and Bowel: Normal colonic caliber, without significant wall thickening. Extensive sigmoid diverticulosis without evidence of acute diverticulitis. There is a segment of ascending colon which apparently has diffuse wall thickening and luminal narrowing. Consider possible colonic malignancy. Peritoneum: No abnormal intraperitoneal fluid. No free air. Ventral Wall: No hernia. Abdominal Nodes: No retroperitoneal or mesenteric adenopathy by size criteria. Vessels: Aorta and inferior vena cava are normal in size. PELVIS: Pelvic Organs: Unremarkable. Bladder: Unremarkable. Pelvic Nodes: No enlarged lymph nodes. Miscellaneous: No inguinal hernias are seen. Bones: No aggressive osseous abnormality. Lumbar degenerative change with canal stenosis at L4-L5 and L3-L4. Bilateral total hip arthroplasties IMPRESSION: 1. There is no acute hemorrhage identified over the course of this particular study. 2. Extensive sigmoid diverticulosis without evidence of acute diverticulitis. 3. Question possible right colonic malignancy causing wall thickening and narrowing. 4. Moderately large hiatal hernia. 5. No evidence of metastatic disease. Comment: Recommend direct visualization of the right colon utilizing colonoscopy when the patient is stable if this patient has not already undergone recent colonoscopy. Dictated by: Niraj Saldaña M.D. on 10/10/2023 at 13:44 Approved by: Niraj Saldaña M.D. on 10/10/2023 at 13:51
== END 2023-10-10 14:35 | disposition home or self-care (01) ==
PROVIDERS: Emergency Provider Physician Assistant Medical; PCP Internal Medicine
DX: K92.2 Gastrointestinal hemorrhage, unspecified (principal); R79.89 Other specified abnormal findings of blood chemistry
CPT/HCPCS: 71046; 74174; 80053; 82272; 82550; 83880; 84484; 85025; 93005; 96374; 99284; J2470; Q9967

== ENCOUNTER → 2023-12-19 14:55 | Day surgery (SDC) | payer MEDICARE, SELFPAY ==
[2021-01-26 18:33] VITALS: BMI 25.4
[2023-12-19 15:17] VITALS: BP 166/67; PULSE 85; RESP 16; TEMP 36.2; O2SAT 87
--- NOTE | 2023-12-19 15:28 | PM.HP.1 ---
History of Present Illness History of Present Illness Date Patient Seen: 12/19/23 Time Patient Seen: 15:28 Date of Onset of Symptoms: 12/19/23 Chief complaint: EGD/Colonoscopy Narrative: 83-year-old woman with a history of anemia here for diagnostic upper and lower endoscopy. No interval change in health since last seen November 2023. Mother had colon cancer she has a known large hiatal hernia [facility] Medical History Iron deficiency anemia GERD without esophagitis Gait instability Dupuytren's contracture of left hand Trigger finger, left middle finger Family history of colon cancer in mother ADD (attention deficit disorder) Depression, major, recurrent Do not resuscitate Age-related osteoporosis without current pathological fracture Mixed hyperlipidemia Recurrent UTI Urinary incontinence Allergic rhinitis Asthma, mild intermittent Alopecia (~1994) Acne (~1953) Chicken pox (~1942) Anemia (~2015) Herpes (~1979) Diverticular disease (~2020) Colon polyps (~1994) Family hx of colon cancer Hiatal hernia (~2015) Surgical History Anesthesia History of hip replacement History of cataract removal with insertion of prosthetic lens (~2016) History of hysterectomy (~1979) History of repair of ACL Family History Father ALS (amyotrophic lateral sclerosis) Mother Colon cancer Sister Breast cancer Grandfather Parkinson's disease Grandmother History of heart disease Social History 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 status: details: , 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 members: none education level: college occupational status: other Previous occupational history: [employer] Smoking Status: Former smoker Tobacco: How many years used: 42 Meds Home Medications and Allergies Home Medications Medication Instructions Recorded Confirmed Type ferrous sulfate 325 mg (65 mg 325 mg PO BID #60 tabs 01/28/21 11/13/23 Rx iron) tablet (Iron (ferrous sulfate)) estradiol 0.01% (0.1 mg/gram) 1 g vaginal 2XW #42.5 grams 12/12/21 11/13/23 Rx vaginal cream vitamins A,C,E-rysa-zbpajx 2,148 2 tab PO BID 12/12/21 11/13/23 History mcg-113 mg-45 mg-17.4 mg tablet (PreserVision AREDS) albuterol sulfate 90 mcg/actuation See Rx Instructions .Route 06/18/22 12/19/23 Rx aerosol inhaler .COMPLEX #13.4 grams pantoprazole 40 mg tablet,delayed 40 mg PO DAILY #90 tabs 02/11/23 12/19/23 Rx release rosuvastatin 10 mg tablet 10 mg PO DAILY #90 tabs 06/30/23 12/19/23 Rx sertraline 100 mg tablet 100 mg PO DAILY #90 tabs 06/30/23 12/19/23 Rx sodium sul 1.479 gram-potas ch See Rx Instructions PO PER PKG DIR 11/13/23 Rx 0.188 gram-magnes sul 0.225 gram #24 tabs tablet (Sutab) Allergies Allergy/AdvReac Type Severity Reaction Status Date / Time peanut Allergy Severe Anaphylaxis Verified 12/19/23 15:11 ciprofloxacin [From Cipro] Allergy Mild Verified 12/19/23 15:11 lactose Allergy Mild CHEESE Verified 12/19/23 15:11 OK-NO MILK OR OTHERWISE MILK PRODUCTS & NO SOY MILK Exam Vital Signs (past 8 hours): - 12/19/23 15:17 Temperature 97.2 F L Pulse Rate 85 Respiratory Rate 16 Blood Pressure 166/67 H Pulse Oximetry 87 L Oxygen Delivery Method Room Air Oxygen Delivery Method Room Air Narrative Exam Narrative: General adult woman alert oriented no acute distress Chest nonlabored respiration Extremities warm well perfused Assessment & Plan Assessment and plan (1) Iron deficiency anemia: Qualifiers: Iron deficiency anemia type: unspecified iron deficiency Qualified Code(s): D50.9 - Iron deficiency anemia, unspecified Status: Acute Assessment & Plan narrative: 83-year-old woman with iron-deficiency anemia family history of colon cancer here for diagnostic esophagogastroduodenoscopy and colonoscopy. Technical details were discussed. Risks, benefits, alternatives explained. Risks including but not limited to myocardial infarction, aspiration, bleeding, pain, missed lesion, incomplete examination, need for further radiographic studies, intestinal injury, and need for major abdominal surgery were discussed. All questions were answered to their satisfaction, and they are in agreement with this plan. Time-Based Coding :: [TOTAL MINUTES] spent with patient and on the chart (including review of chart, obtaining history, exam, reviewing outside data, placing orders, documenting exam and treatment plan, and counseling patient) on [DATE].
--- NOTE | 2023-12-19 16:05 | PM.CALLCOV.1 ---
Call Coverage Note Note Date of Patient Contact: 12/19/23 Time of Patient Contact: 16:05 Narrative of Care Provided: Patient reports that she has yet to complete her bowel prep and that she had been consuming liquids up until the last 1 hour. Procedure cancelled. Patient will need to call to reschedule
== END | disposition home or self-care (01) ==
PROVIDERS: PCP Internal Medicine; Referring Provider Surgery; Visit Provider Surgery
DX: D50.9 Iron deficiency anemia, unspecified (principal); Z53.09 Procedure and treatment not carried out because of other contraindication

== ENCOUNTER → 2023-12-24 16:29 | Outpatient (CLI) | payer MEDICARE, SELFPAY ==
[2021-01-26 18:33] VITALS: BMI 25.4
[2023-12-24 17:26] LABS: Hematocrit 35.9 % (36-46); Hemoglobin 11.9 g/dL (12.0-16.0); Mean Corpuscular HGB Conc 33.2 % (30-36); Mean Corpuscular Hemoglobin 29.2 PG (26-34); Platelet Count 199 X10^3/uL (150-400); Red Blood Cell Count 4.08 X10^6/uL (4.0-5.2); Red Cell Distribution Width 16.2 % (11.6-14.8); White Blood Cell Count 6.4 X10^3/uL (4.5-11.0)
[2023-12-24 17:53] LABS: HEMOLYSIS < 15 (0-50); Iron 52 ug/dL (37-170)
[2023-12-24 18:07] LABS: Alanine Aminotransferase 18 IU/L (<35); Albumin 4.1 g/dL (3.5-5.0); Albumin Globulin Ratio 1.3 (1.0-2.8); Alkaline Phosphatase 83 U/L (38-126); Aspartate Aminotransferase 35 IU/L (14-36); BUN Creatinine Ratio 18.5 (6-22); Bilirubin Total 0.3 mg/dL (0.2-1.3); Blood Urea Nitrogen 20 mg/dL (7-17); Calcium 9.4 mg/dL (8.4-10.2); Carbon Dioxide 23 mmol/L (22-32); Chloride 102 mmol/L (98-107); Cholesterol 224 mg/dL (140-199); Estimated Glomerular Filt Rate 51 mL/min (>60); Globulin 3.1 g/dL (1.7-4.1); Glucose 104 mg/dL (80-110); HDL Cholesterol 101 mg/dL (40-60); HEMOLYSIS < 15 (0-50); LDL Cholesterol Calculated 103 mg/dL (<100); Potassium 4.4 mmol/L (3.4-5.1); Sodium 133 mmol/L (137-145); Total Protein 7.2 g/dL (6.3-8.2); Triglycerides 101 mg/dL (35-150)
[2023-12-24 18:12] LABS: Percent Iron Saturation 19 % (15-50); Total Iron Binding Capacity 275 ug/dL (265-497); Transferrin 236 mg/dL (206-381)
[2023-12-24 18:43] LABS: Ferritin 94 ng/mL (11-264)
== END ==
PROVIDERS: PCP Internal Medicine; Referring Provider Internal Medicine; Visit Provider Internal Medicine
DX: E78.2 Mixed hyperlipidemia (principal); D50.9 Iron deficiency anemia, unspecified; M81.0 Age-related osteoporosis without current pathological fracture
CPT/HCPCS: 36415; 80053; 80061; 82728; 83540; 83550; 85027

== ENCOUNTER 2024-01-30 13:19 | Day surgery (SDC) | payer MEDICARE, SELFPAY ==
[2021-01-26 18:33] VITALS: BMI 25.4
--- NOTE | 2024-01-30 | PATH_ITS ---
[facility] Accession Number: [id number] No. of containers..02 Tissue . 01 Material submitted: . PART A: gastrointestinal site - GASTRIC BIOPSY PART B: esophagus, E-G Junction - GE JUNCTION . 01 Diagnosis: Part A: GASTRIC BIOPSY: Mild changes of reactive gastropathy. No Helicobacter organisms identified. No intestinal metaplasia, dysplasia, or malignancy identified. . Part B: GE JUNCTION: Squamous mucosa with mild reactive changes suggestive of reflux. Eosinophils are not increased. [facility] 02/05/20241812 Local . 01 Electronically signed: . Jorge Zhong MD, Pathologist NPI- [id number] . 01 Gross description: . A. Received in formalin with two patient identifiers and gastric biopsy, are two alexander soft tissue fragments 0.2 to 0.5 cm in greatest dimension. Submitted in cassette A1. . B. Received in formalin with two patient identifiers and GE junction, are two alexander soft tissue fragments 0.2 to 0.3 cm in greatest dimension. Submitted in cassette B1. ([id number]) /[facility] 02/05/20241812 Local . 01 Microscopic: . Part A: GASTRIC BIOPSY: An immunohistochemical stain was performed to evaluate for Helicobacter organisms and is negative. The control stains appropriately. * This test was developed and the performance characteristics were validated by [facility]. It has not been cleared or approved by the Food and Drug Administration. . 01 Pathologist provided ICD-10: K21.00, K29.60 . 01 CPT . 865246, 655816, U51130 Specimen Comment: A courtesy copy of this report has been sent to [phone] Performed at: [address] [address], [place], [place] [id number] MD Jorge Zhong MD Phone: [phone]
[2024-01-30 14:29] VITALS: BP 134/74; PULSE 78; RESP 16; TEMP 36.5; O2SAT 98
--- NOTE | 2024-01-30 14:52 | PM.HP.1 ---
History of Present Illness History of Present Illness Date Patient Seen: 01/30/24 Time Patient Seen: 14:53 Chief complaint: EGD Narrative: 84-year-old woman history of Barretts esophagus here for routine screening. Reflux well controlled with pantoprazole 40 mg daily. Last upper endoscopy 3-5 years ago at that point she reports that she did not have active Barretts. [facility] Medical History (Updated 01/30/24 @ 14:54 by Ranjith Azevedo MD) Iron deficiency anemia GERD without esophagitis Gait instability Dupuytren's contracture of left hand Trigger finger, left middle finger Family history of colon cancer in mother ADD (attention deficit disorder) Depression, major, recurrent Do not resuscitate Age-related osteoporosis without current pathological fracture Mixed hyperlipidemia Recurrent UTI Urinary incontinence Allergic rhinitis Asthma, mild intermittent Alopecia (~1994) Acne (~1953) Chicken pox (~1942) Anemia (~2015) Herpes (~1979) Diverticular disease (~2020) Colon polyps (~1994) Family hx of colon cancer Hiatal hernia (~2015) Surgical History Anesthesia History of hip replacement History of cataract removal with insertion of prosthetic lens (~2016) History of hysterectomy (~1979) History of repair of ACL Family History Father ALS (amyotrophic lateral sclerosis) Mother Colon cancer Sister Breast cancer Grandfather Parkinson's disease Grandmother History of heart disease Social History 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 status: 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: , 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 members: none education level: college occupational status: other 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 Smoking Status: Former smoker Tobacco: How many years used: 42 Meds Home Medications and Allergies Home Medications Medication Instructions Recorded Confirmed Type ferrous sulfate 325 mg (65 mg 325 mg PO BID #60 tabs 01/28/21 12/24/23 Rx iron) tablet (Iron (ferrous sulfate)) estradiol 0.01% (0.1 mg/gram) 1 g vaginal 2XW #42.5 grams 12/12/21 01/30/24 Rx vaginal cream vitamins A,C,H-obaa-lomnms 2,148 2 tab PO BID 12/12/21 12/24/23 History mcg-113 mg-45 mg-17.4 mg tablet (PreserVision AREDS) albuterol sulfate 90 mcg/actuation See Rx Instructions .Route 06/18/22 01/30/24 Rx aerosol inhaler .COMPLEX #13.4 grams pantoprazole 40 mg tablet,delayed 40 mg PO DAILY #90 tabs 02/11/23 01/30/24 Rx release rosuvastatin 10 mg tablet 10 mg PO DAILY #90 tabs 06/30/23 01/30/24 Rx sertraline 100 mg tablet 100 mg PO DAILY #90 tabs 06/30/23 01/30/24 Rx sodium sul 1.479 gram-potas ch See Rx Instructions PO PER PKG DIR 11/13/23 12/24/23 Rx 0.188 gram-magnes sul 0.225 gram #24 tabs tablet (Sutab) Allergies Allergy/AdvReac Type Severity Reaction Status Date / Time peanut Allergy Severe Anaphylaxis Verified 01/30/24 14:17 ciprofloxacin [From Cipro] Allergy Mild Verified 01/30/24 14:17 lactose Allergy Mild CHEESE Verified 01/30/24 14:17 OK-NO MILK OR OTHERWISE MILK PRODUCTS & NO SOY MILK Exam Vital Signs (past 8 hours): - 01/30/24 14:29 Temperature 97.7 F Pulse Rate 78 Respiratory Rate 16 Blood Pressure 134/74 Pulse Oximetry 98 Oxygen Delivery Method Room Air Oxygen Delivery Method Room Air Narrative Exam Narrative: General adult woman alert oriented no acute distress Chest nonlabored respiration Extremities warm well perfused Assessment & Plan Assessment and plan (1) Barretts esophagus: Status: Acute Assessment & Plan narrative: Screening esophagogastroduodenoscopy recommended for history of Barretts esophagus. Technical details were discussed. Risks, benefits, alternatives explained. Risks including but not limited to myocardial infarction, aspiration, bleeding, pain, missed lesion, incomplete examination, need for further radiographic studies, intestinal injury, and need for major abdominal surgery were discussed. All questions were answered to their satisfaction, and they are in agreement with this plan. Time-Based Coding :: [TOTAL MINUTES] spent with patient and on the chart (including review of chart, obtaining history, exam, reviewing outside data, placing orders, documenting exam and treatment plan, and counseling patient) on [DATE].
--- NOTE | 2024-01-30 14:54 | PM.OP.EGD ---
Operative Date/Time/Diagnoses Date of procedure: 01/30/24 Time of procedure: 14:55 Pre-op diagnosis: History of Barretts esophagus Procedure & Clinicians Study performed: Esophagogastroduodenoscopy Same procedure as scheduled: Yes Indications: History of Barretts, routine screening Surgeon: Ranjith Azevedo Procedure Notes Procedure in detail: The history and physical was performed/updated and the patient is ASA class is 2. The procedure was discussed in detail with the patient. Potential risks complications including infection, bleeding, missed diagnosis, perforation, need for surgery, and were explained. Their questions were answered and informed consent was obtained. Patient placed in left lateral decubitus position. Time out was performed. Procedural sedation was administered by Anesthesia. A bite block was placed. the scope was inserted into the mouth and advanced through the esophagus and into the stomach. Biopsy of the stomach was performed with forceps. The pylorus was intubated and the duodenum was examined to the 2nd portion. The scope was then withdrawn into the stomach and was retroflexed. The stomach was decompressed and scope was withdrawn slowly through the esophagus. Biopsy of the GE junction was performed with forceps no obvious Barretts esophagus FINDINGS -clot within the body of the stomach and associated gastritis. -Jhonny's ulcer associated with a large hiatal hernia. The patient tolerated the procedure well and will be discharged when they meet criteria. Specimen(s): other (Gastric biopsy, GE junction) Impression: Jhonny ulcer Post-procedure Plan for aftercare: -increase pantoprazole to twice daily and start Carafate Disposition: same day surgery
--- NOTE | 2024-01-30 15:08 | SUR.OPER ---
EGD SCOPE [id number]
[2024-01-30 15:15] VITALS: BP 138/67; PULSE 97; RESP 22; TEMP 36.5; O2SAT 93
[2024-01-30 15:19] VITALS: BP 138/72; PULSE 91; RESP 13; O2SAT 94
[2024-01-30 15:25] VITALS: BP 153/75; PULSE 91; RESP 15; O2SAT 94
[2024-01-30 15:34] VITALS: BP 156/80; PULSE 89; RESP 20; TEMP 36.7; O2SAT 97
== END 2024-01-30 16:00 | disposition home or self-care (01) ==
PROVIDERS: PCP Internal Medicine; Referring Provider Surgery; Visit Provider Surgery
PROC: 0DJ08ZZ Inspection of Upper Intestinal Tract, Via Natural or Artificial Opening Endoscopic (ICD-10-PCS; CPT 43239; principal; 2024-01-30 14:30)
DX: Z87.19 Personal history of other diseases of the digestive system (principal); K29.70 Gastritis, unspecified, without bleeding; K44.9 Diaphragmatic hernia without obstruction or gangrene; K25.9 Gastric ulcer, unspecified as acute or chronic, without hemorrhage or perforation; K31.9 Disease of stomach and duodenum, unspecified
CPT/HCPCS: 43239; J2704

== ENCOUNTER → 2024-06-21 14:47 | Outpatient (CLI) | payer MEDICARE, SELFPAY ==
[2021-01-26 18:33] VITALS: BMI 25.4
[2024-06-21 15:35] LABS: Hematocrit 32.3 % (36-46); Hemoglobin 10.7 g/dL (12.0-16.0); Mean Corpuscular HGB Conc 33.1 % (30-36); Mean Corpuscular Hemoglobin 29.9 PG (26-34); Mean Corpuscular Volume 90.4 fL (80-100); Platelet Count 178 X10^3/uL (150-400); Red Blood Cell Count 3.57 X10^6/uL (4.0-5.2); Red Cell Distribution Width 15.6 % (11.6-14.8); White Blood Cell Count 5.5 X10^3/uL (4.5-11.0)
[2024-06-21 15:51] LABS: HEMOLYSIS < 15 (0-50); Iron 57 ug/dL (37-170)
[2024-06-21 15:54] LABS: Alanine Aminotransferase 22 IU/L (<35); Albumin 4.5 g/dL (3.5-5.0); Albumin Globulin Ratio 1.6 (1.0-2.8); Alkaline Phosphatase 66 U/L (38-126); Aspartate Aminotransferase 35 IU/L (14-36); BUN Creatinine Ratio 27.8 (6-22); Bilirubin Total 0.4 mg/dL (0.2-1.3); Blood Urea Nitrogen 27 mg/dL (7-17); Calcium 9.6 mg/dL (8.4-10.2); Carbon Dioxide 23 mmol/L (22-32); Chloride 102 mmol/L (98-107); Estimated Glomerular Filt Rate 57 mL/min (>60); Globulin 2.8 g/dL (1.7-4.1); Glucose 122 mg/dL (80-110); HEMOLYSIS < 15 (0-50); Potassium 3.9 mmol/L (3.4-5.1); Sodium 136 mmol/L (137-145); Total Protein 7.3 g/dL (6.3-8.2)
[2024-06-21 16:03] LABS: Percent Iron Saturation 19 % (15-50); Total Iron Binding Capacity 306 ug/dL (265-497); Transferrin 268 mg/dL (206-381)
[2024-06-21 16:24] LABS: TSH w/ Reflex to FT4 1.84 uIU/mL (0.47-4.68)
[2024-06-21 16:29] LABS: Ferritin 38 ng/mL (11-264)
== END ==
PROVIDERS: PCP Internal Medicine; Referring Provider Internal Medicine; Visit Provider Internal Medicine
DX: D50.9 Iron deficiency anemia, unspecified (principal); E78.2 Mixed hyperlipidemia; E55.9 Vitamin D deficiency, unspecified
CPT/HCPCS: 36415; 80053; 82306; 82728; 83540; 83550; 84443; 85027

== ENCOUNTER → 2025-02-03 14:25 | Outpatient (CLI) | payer MEDICARE, SELFPAY ==
[2021-01-26 18:33] VITALS: BMI 25.4
[2025-02-03 14:43] LABS: Hematocrit 37.1 % (36-46); Hemoglobin 12.2 g/dL (12.0-16.0); Mean Corpuscular HGB Conc 32.9 % (30-36); Mean Corpuscular Hemoglobin 29.1 PG (26-34); Mean Corpuscular Volume 88.5 fL (80-100); Platelet Count 204 X10^3/uL (150-400)
[2025-02-03 15:04] LABS: HEMOLYSIS < 15 (0-50); Iron 62 ug/dL (37-170)
[2025-02-03 15:07] LABS: Blood Urea Nitrogen 18 mg/dL (7-17); Calcium 9.6 mg/dL (8.4-10.2); Carbon Dioxide 24 mmol/L (22-32); Chloride 101 mmol/L (98-107); Estimated Glomerular Filt Rate 49 mL/min (>60); Glucose 104 mg/dL (70-99); HEMOLYSIS 17 (0-50); Potassium 4.4 mmol/L (3.4-5.1); Sodium 135 mmol/L (137-145)
[2025-02-03 15:15] LABS: Percent Iron Saturation 22 % (15-50); Total Iron Binding Capacity 288 ug/dL (265-497); Transferrin 277 mg/dL (206-381)
[2025-02-03 15:40] LABS: Ferritin 37 ng/mL (11-264)
== END ==
PROVIDERS: PCP Internal Medicine; Referring Provider Internal Medicine; Visit Provider Internal Medicine
DX: D50.9 Iron deficiency anemia, unspecified (principal); E78.2 Mixed hyperlipidemia
CPT/HCPCS: 36415; 80048; 82728; 83540; 83550; 85027